=== PATIENT | female | born 1985 | race Asian ===

== ENCOUNTER 2019-08-28 08:43 | Day surgery (SDC) | payer BC ==
[2019-08-27 12:50] LABS: BLOOD UREA NITROGEN,BUN 8 mg/dL (7.0-18.0); CARBON DIOXIDE,CO2 25.4 mmol/L (21.0-32.0); CHLORIDE,CL 100 mmol/L (98-107); GLUCOSE RANDOM 91 mg/dL (74-106); POTASSIUM,K 4.1 mmol/L (3.5-5.1); SODIUM,NA 135 mmol/L (136-145)
[~2019-08-28 08:43] MED LIST: Sodium Chloride 0.9% 10 ML SDV IV PRN; Sodium Chloride 0.9% 10 ML Syringe FLUSH PRN; Sodium Chloride 0.9% 2.5 ML Syringe FLUSH PRN
[2019-08-28] MEDS ORDERED: Doxycycline 100 MG in Sodium Chloride 0.9% 100 ML IV ONE ×2 (09:00→10:15)
--- NOTE | 2019-08-28 09:09 | PCM.PREANE ---
Preanesthetic Assessment - Anesthesia/Transfusion/Family Hx Anesthesia History: No Prior Anesthesia Family History of Anesthesia Reaction: No Transfusion History: No Prior Transfusion(s) Intubation History: Unknown - Review of Systems General: No Symptoms Pulmonary: No Symptoms Cardiovascular: No Symptoms Gastrointestinal: No Symptoms Neurological: No Symptoms Other: Reports: None - Physical Assessment Height: 5 ft 4 in Weight: 56.245 kg ASA Class: 2 Mental Status: Alert & Oriented x3 Airway Class: Mallampati = 1 Dentition: Reports: Normal Dentition, Gleason(s) (x2 upper front) Thyro-Mental Finger Breadths: 3 Mouth Opening Finger Breadths: 2 ROM/Head Extension: Full Lungs: Clear to Auscultation Cardiovascular: Regular Rate, Regular Rhythm - Lab Values: Laboratory Last Values WBC 7.18 K/uL (4.0-11.0) 08/27/19 11:50 RBC 4.26 M/uL (4.30-5.90) L 08/27/19 11:50 Hgb 12.7 g/dL (12.0-16.0) 08/27/19 11:50 Hct 38.4 % (36.0-46.0) 08/27/19 11:50 MCV 90.1 fL (80.0-98.0) 08/27/19 11:50 MCH 29.8 pg (27.0-32.0) 08/27/19 11:50 MCHC 33.1 g/dL (31.0-37.0) 08/27/19 11:50 RDW Std Deviation 41.9 fl (28.0-62.0) 08/27/19 11:50 RDW Coeff of Maximo 13 % (11.0-15.0) 08/27/19 11:50 Plt Count 267 K/uL (150-400) 08/27/19 11:50 MPV 10.10 fL (7.40-12.00) 08/27/19 11:50 Nucleated RBC % 0.0 /100WBC 08/27/19 11:50 Nucleated RBCs # 0 K/uL 08/27/19 11:50 Sodium 135 mmol/L (136-145) L 08/27/19 11:50 Potassium 4.1 mmol/L (3.5-5.1) 08/27/19 11:50 Chloride 100 mmol/L (98-107) 08/27/19 11:50 Carbon Dioxide 25.4 mmol/L (21.0-32.0) 08/27/19 11:50 BUN 8 mg/dL (7.0-18.0) 08/27/19 11:50 Creatinine 0.5 mg/dL (0.6-1.0) L 08/27/19 11:50 Est Cr Clr Drug Dosing 136.90 mL/min 08/27/19 11:50 Estimated GFR (MDRD) > 60.0 ml/min 08/27/19 11:50 Glucose 91 mg/dL (74-106) 08/27/19 11:50 Calcium 9.5 mg/dL (8.5-10.1) 08/27/19 11:50 Total Bilirubin 0.4 mg/dL (0.2-1.0) 08/27/19 11:50 AST 14 IU/L (15-37) L 08/27/19 11:50 ALT 19 IU/L (14-63) 08/27/19 11:50 Alkaline Phosphatase 36 U/L (46-116) L 08/27/19 11:50 Total Protein 8.2 g/dL (6.4-8.2) 08/27/19 11:50 Albumin 4.2 g/dL (3.4-5.0) 08/27/19 11:50 Globulin 4.0 g/dL (2.6-4.0) 08/27/19 11:50 Albumin/Globulin Ratio 1.0 (0.9-1.6) 08/27/19 11:50 Free T4 0.99 ng/dL (0.76-1.46) 08/27/19 11:50 TSH 3rd Generation 1.10 uIU/mL (0.36-3.74) 08/27/19 11:50 HCG, Quant 786445.0 mIU/mL 08/27/19 11:50 Blood Type O NEGATIVE 08/27/19 11:50 Antibody Screen NEGATIVE 08/27/19 11:50 Screen Cancelled 08/27/19 11:50 RhIG Candidate? Cancelled 08/27/19 11:50 Rhogam Indicated YES, BABY RH UNKNOWN H 08/27/19 11:50 Crossmatch See Detail 08/27/19 11:50 - Allergies Allergies/Adverse Reactions: Allergies Allergy/AdvReac Type Severity Reaction Status Date / Time No Known Allergies Allergy Verified 08/27/19 09:10 - Blood Blood Available: No - Anesthesia Plan Pre-Op Medication Ordered: None - Acknowledgements Anesthesia Type Planned: General Anesthesia Pt an Appropriate Candidate for the Planned Anesthesia: Yes Alternatives and Risks of Anesthesia Discussed w Pt/Guardian: Yes Pt/Guardian Understands and Agrees with Anesthesia Plan: Yes PreAnesthesia Questionnaire - Past Health History Medical/Surgical History: Denies Medical/Surgical History HEENT History: Reports: None Cardiovascular History: Reports: Other (See Below) Other Cardiovascular History: palpatations, hx occasional PVC's Respiratory History: Reports: None Gastrointestinal History: Reports: Cholelithiasis (single stone) Genitourinary History: Reports: None 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: , Other (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) ( ovarian cyst) Musculoskeletal History: Reports: None Neurological History: Reports: None Psychiatric History: Reports: None Endocrine/Metabolic History: Reports: None Hematologic History: Reports: None Immunologic History: Reports: Other (See Below) Other Immunologic History: "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" "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" Oncologic (Cancer) History: Reports: None Dermatologic History: Reports: None - Past Surgical History Head Surgeries/Procedures: Reports: None HEENT Surgical History: Reports: None Cardiovascular Surgical History: Reports: None Respiratory Surgical History: Reports: None GI Surgical History: Reports: None Female Surgical History: Reports: Breast Biopsy Other Female Surgeries/Procedures: breast bx under local (fibroadenoma) Endocrine Surgical History: Reports: None Neurological Surgical History: Reports: None Musculoskeletal Surgical History: Reports: None Oncologic Surgical History: Reports: None Dermatological Surgical History: Reports: None - SUBSTANCE USE Smoking Status *Q: Never Smoker Recreational Drug Use History: No - HOME MEDS Home Medications: Home Meds Pnv No.95/Ferrous Fum/Folic AC [ Vitamin Tablet] 1 tab PO DAILY [History] Pyridoxine HCl (Vitamin B6) [Vitamin B-6] 1 tab PO DAILY 08/27/19 [History] - CURRENT (IN HOUSE) MEDS Current Meds: Current Medications Doxycycline Hyclate 100 mg/ (Sodium Chloride) 100 mls @ 100 mls/hr IV ONETIME ONE Stop: 08/28/19 09:59 Sodium Chloride (Saline Flush) 10 ml FLUSH ASDIRECTED PRN PRN Reason: Keep Vein Open Sodium Chloride (Saline Flush) 2.5 ml FLUSH ASDIRECTED PRN PRN Reason: Keep Vein Open Sodium Chloride (Normal Saline) 10 ml IV ASDIRECTED PRN PRN Reason: IV Use
[2019-08-28] MEDS ORDERED: Lidocaine 2% 5 ML SDV ONE (09:26)
[2019-08-28] MEDS ORDERED: Ondansetron 4 MG/2 ML SDV ONE (09:26)
[2019-08-28] MEDS ORDERED: Propofol 200 MG/20 ML SDV ONE (09:27)
[2019-08-28] MEDS ORDERED: fentaNYL 100 MCG/2 ML SDV ONE (09:27)
[2019-08-28] MEDS ORDERED: Midazolam 1 MG/ML 2 ML SDV ONE (09:27)
[2019-08-28] MEDS ORDERED: Lactated Ringers 1,000 ML IV SCH (09:30)
[2019-08-28] MEDS ORDERED: ePHEDrine 50 MG/ML SDV ONE (09:31)
--- NOTE | 2019-08-28 09:31 | CR ---
Chest: 2 views of the chest were obtained. Comparison: No previous chest imaging is available. Heart size and mediastinum are normal. Lungs are clear with no acute parenchymal change. Bony structures are unremarkable. Impression: 1. Nothing acute is seen on 2 view chest x-ray. Diagnostic code #1 This report was dictated in MDT
[2019-08-28] MEDS ORDERED: Carboprost Tromethamine 250 MCG/1 ML Amp ONE (10:34)
[2019-08-28] MEDS ORDERED: Methylergonovine 0.2 MG/1 ML Amp ONE (10:34)
[2019-08-28] MEDS ORDERED: Oxytocin 10 Units/1 ML SDV ONE ×2 (10:59→11:01)
[2019-08-28] MEDS ORDERED: Ketorolac 30 MG/ML SDV ONE (11:13)
[2019-08-28] MEDS ORDERED: Acetaminophen/HYDROcodone 325-5 MG Tab PO PRN (11:21)
--- NOTE | 2019-08-28 11:50 | PCM.POSTAN ---
POST ANESTHESIA ASSESSMENT - MENTAL STATUS Mental Status: Alert, Oriented - VITAL SIGNS Vital Signs: Last Vital Signs Temp 36.7 C 08/28/19 11:14 Pulse 88 08/28/19 11:40 Resp 10 L 08/28/19 11:40 BP 102/53 L 08/28/19 11:40 Pulse Ox 100 08/28/19 11:40 - RESPIRATORY Respiratory Status: Respiratory Rate WNL, Airway Patent, O2 Saturation Stable - CARDIOVASCULAR CV Status: Pulse Rate WNL, Blood Pressure Stable - GASTROINTESTINAL GI Status: No Symptoms - PAIN Pain Score: 2 - POST OP HYDRATION Hydration Status: Adequate & Stable - OBSERVATIONS Free Text/Narrative:: No anesthesia problems
[2019-08-28] MEDS ORDERED: Lidocaine 1% with EPINEPHrine 1:100,000 10 ML MDV ONE (12:32)
--- NOTE | 2019-08-28 13:36 | PCM48HPAN ---
Post Anesthesia Note - EVALUATION WITHIN 48HRS OF ANESTHETIC Vital Signs in Normal Range: Yes Patient Participated in Evaluation: Yes Respiratory Function Stable: Yes Airway Patent: Yes Cardiovascular Function Stable: Yes Hydration Status Stable: Yes Pain Control Satisfactory: Yes Nausea and Vomiting Control Satisfactory: Yes Mental Status Recovered: Yes Vital Signs: Last Vital Signs Temp 36.1 C 08/28/19 13:06 Pulse 82 08/28/19 13:06 Resp 16 08/28/19 13:06 BP 109/56 L 08/28/19 13:06 Pulse Ox 100 08/28/19 13:06
--- NOTE | 2019-08-28 13:49 | US ---
note for further details.
[2019-08-28] MEDS ORDERED: Acetaminophen/HYDROcodone 325-5 MG Tab PO ONE (15:06)
--- NOTE | 2019-08-28 17:44 | OR ---
SURGEON: Jason Thakkar MD DATE OF PROCEDURE: 08/28/2019 INDICATION FOR PROCEDURE: A 34-year-old, , at 9 weeks by last menstrual period diagnosed with nonviable presenting for surgical management. She had an ultrasound with pole measuring 6 weeks 0 days and no heart rate. Repeat ultrasound after 10 days confirmed no growth. There was also concern for molar because her HCG levels are significantly elevated and increasing, [phone] today, with cystic areas around the gestational sac. PREOPERATIVE DIAGNOSES: 1. Missed . 2. Suspected partial molar . POSTOPERATIVE DIAGNOSES: 1. Missed . 2. Suspected partial molar . PROCEDURE PERFORMED: Suction dilation and curettage under ultrasound guidance. ANESTHESIA: General anesthesia. ANESTHESIOLOGIST: Dr. Letty Medrano. FINDINGS: Uterus approximately 8-week size, anteverted and mobile. No adnexal masses. Uterine cavity evacuated and confirmed to have no remaining products of conception on ultrasound. No free fluid or other abnormalities of the pelvis on ultrasound. Products of conception sent to pathology for karyotype and cytogenetics. ESTIMATED BLOOD LOSS: 400 mL. DESCRIPTION OF PROCEDURE: The procedure was explained to the patient. Risks including bleeding; infection; DVTs; injury to surrounding organs including bladder, bowel, ureters discussed with the patient, she was agreeable. Questions answered and consent signed. She was brought to the operating room where she was placed in dorsal lithotomy position. Properly prepped and draped in sterile manner under general anesthesia. A bimanual exam revealed uterus to be 8-week size, anteverted, and mobile. The bladder was emptied with a straight catheter. A speculum was placed in the vagina. The cervix and vagina were both normal appearing. A paracervical block was performed with 1% lidocaine with epi and 7 mL was injected circumferentially around the cervix. A single-tooth tenaculum was used to grasp the anterior lip of the cervix. The endocervical canal was progressively dilated with Hegar dilator up to 9mm. A 9mm curved curette was connected to the suction under adequate pressure, placed in the cervix, and advanced to the fundus under ultrasound guidance. The suction curette was rotated slowly while extracting products of conception from the uterus. Two passes were made with the suction curettage which removed most tissue. A sharp curettage was carefully performed and two additional passes were made with the suction and curettage until there were no products visible in the endometrial cavity. The tenaculum was then removed. The tenaculum site was bleeding slightly. Silver nitrate was used to cauterize the site of bleeding. Hemostasis was confirmed. She was given Pitocin for uterine tone. Fundal massage was applied and the uterus was firm. Vaginal bleeding was light. She tolerated the procedure well and was awakened from anesthesia, sent to recovery room in stable condition. SOPHIA MIGUEL /[id number] MTDD
== END 2019-08-28 15:15 | disposition home or self-care (01) ==
LOC: MW.SDS 08:43
PROVIDERS: ATTEND Obstetrics & Gynecology
DX: O02.1 Missed abortion (principal)
CPT/HCPCS: 36415; 59820; 71046; 76998; 80053; 84439; 84443; 84702; 85027; 86850; 86900; 86901; 86920; 86921; 86922; 87635; 88233; A9270; J1885; J2001; J2210; J2250; J2405; J2590; J2704; J2792; J3010; J7120; 01965; U0002

== ENCOUNTER 2021-02-14 00:20 | Inpatient (IN) | payer BC ==
[2021-02-14] MEDS ORDERED: Sodium Chloride 0.9% 2.5 ML Syringe FLUSH PRN (00:48)
[2021-02-14] MEDS ORDERED: Methylergonovine 0.2 MG/1 ML Amp IM PRN (00:48)
[2021-02-14] MEDS ORDERED: Terbutaline 1 MG/ML SDV SUBCUT PRN (00:48)
[2021-02-14] MEDS ORDERED: Lidocaine 1% 50 ML MDV INJECT PRN (00:48)
[2021-02-14] MEDS ORDERED: Tranexamic Acid 1,000 MG in Sodium Chloride 0.9% 100 ML IV PRN (00:48)
[2021-02-14] MEDS ORDERED: Water For Irrigation,Sterile 1,000 ML Container IRR PRN (00:48)
[2021-02-14] MEDS ORDERED: Nalbuphine 10 MG/1 ML Vial IVPUSH PRN (00:48)
[2021-02-14] MEDS ORDERED: Sodium Chloride 0.9% 10 ML Syringe FLUSH PRN (00:48)
[2021-02-14] MEDS ORDERED: Ondansetron 4 MG/2 ML SDV IVPUSH PRN (00:48)
[2021-02-14] MEDS ORDERED: Sodium Chloride 0.9% 20 ML SDV IV PRN (00:48)
[2021-02-14] MEDS ORDERED: Misoprostol 200 MCG Tab PO PRN (00:48)
[2021-02-14] MEDS ORDERED: Misoprostol 25 MCG (1/4 of 100 MCG) Tab VAG PRN ×2 (00:48)
[2021-02-14] MEDS ORDERED: Butorphanol 1 MG/ML SDV IVPUSH PRN (00:48)
[2021-02-14] MEDS ORDERED: Carboprost Tromethamine 250 MCG/1 ML Amp IM PRN (00:48)
[2021-02-14] MEDS ORDERED: Oxytocin/0.9 % Sodium Chloride 30 UNIT/500 ML BAG IV SCH ×2 (01:00)
[2021-02-14] MEDS: Lactated Ringers 1,000 ML IV SCH ×3 (09:20→15:15)
[2021-02-14] MEDS ORDERED: Ropivacaine HCl/PF 200 ML ONE (12:34)
[2021-02-14] MEDS ORDERED: ePHEDrine 50 MG/ML SDV IVPUSH PRN ×2 (13:02)
--- NOTE | 2021-02-14 13:03 | PCM.PREANE ---
Preanesthetic Assessment - Anesthesia/Transfusion/Family Hx Anesthesia History: No Prior Anesthesia Transfusion History: No Prior Transfusion(s) Intubation History: Unknown - Review of Systems General: No Symptoms Pulmonary: No Symptoms Cardiovascular: No Symptoms Gastrointestinal: No Symptoms Neurological: No Symptoms Other: Reports: None - Physical Assessment NPO Status Date: 02/14/21 NPO Status Time: 00:00 Height: 5 ft 4 in Weight: 161 lb ASA Class: 2 Mental Status: Alert & Oriented x3 Airway Class: Mallampati = 1 Dentition: Reports: Normal Dentition ROM/Head Extension: Full Lungs: Clear to Auscultation, Normal Respiratory Effort Cardiovascular: Regular Rate, Regular Rhythm - Lab Values: Laboratory Last Values WBC 7.21 K/uL (4.0-11.0) 02/14/21 01:20 RBC 3.68 M/uL (4.30-5.90) L 02/14/21 01:20 Hgb 11.9 g/dL (12.0-16.0) L 02/14/21 01:20 Hct 34.6 % (36.0-46.0) L 02/14/21 01:20 MCV 94.0 fL (80.0-98.0) 02/14/21 01:20 MCH 32.3 pg (27.0-32.0) H 02/14/21 01:20 MCHC 34.4 g/dL (31.0-37.0) 02/14/21 01:20 RDW Std Deviation 50.6 fl (28.0-62.0) 02/14/21 01:20 RDW Coeff of Maximo 15 % (11.0-15.0) 02/14/21 01:20 Plt Count 247 K/uL (150-400) 02/14/21 01:20 MPV 10.40 fL (7.40-12.00) 02/14/21 01:20 Nucleated RBC % 0.0 /100WBC 02/14/21 01:20 Nucleated RBCs # 0 K/uL 02/14/21 01:20 Blood Type O NEGATIVE 02/14/21 01:20 Antibody Screen POSITIVE 02/14/21 01:20 Antibody Identification Anti-D 02/14/21 01:20 - Allergies Allergies/Adverse Reactions: Allergies Allergy/AdvReac Type Severity Reaction Status Date / Time No Known Allergies Allergy Verified 05/21/20 09:10 - Acknowledgements Anesthesia Type Planned: Epidural Pt an Appropriate Candidate for the Planned Anesthesia: Yes Alternatives and Risks of Anesthesia Discussed w Pt/Guardian: Yes Pt/Guardian Understands and Agrees with Anesthesia Plan: Yes PreAnesthesia Questionnaire - Past Health History Medical/Surgical History: Denies Medical/Surgical History HEENT History: Reports: None Cardiovascular History: Reports: Other (See Below) Other Cardiovascular History: palpatations, hx occasional PVC's Respiratory History: Reports: None Gastrointestinal History: Reports: Cholelithiasis Genitourinary History: Reports: None [employer] History: Reports: , Other (See Below) Musculoskeletal History: Reports: None Neurological History: Reports: None Psychiatric History: Reports: None Endocrine/Metabolic History: Reports: None Hematologic History: Reports: None Immunologic History: Reports: Other (See Below) Other Immunologic History: "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" "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" Oncologic (Cancer) History: Reports: None Dermatologic History: Reports: None - Past Surgical History Head Surgeries/Procedures: Reports: None HEENT Surgical History: Reports: None Cardiovascular Surgical History: Reports: None Respiratory Surgical History: Reports: None GI Surgical History: Reports: None Female Surgical History: Reports: Breast Biopsy Other Female Surgeries/Procedures: breast bx under local (fibroadenoma) Endocrine Surgical History: Reports: None Neurological Surgical History: Reports: None Musculoskeletal Surgical History: Reports: None Oncologic Surgical History: Reports: None Dermatological Surgical History: Reports: None - HOME MEDS Home Medications: Home Meds Pnv No.95/Ferrous Fum/Folic AC [ Vitamin Tablet] 1 tab PO DAILY 08/27/19 [History] Ibuprofen [Motrin] 600 mg PO Q6H PRN #24 tab 08/28/19 [Rx] - CURRENT (IN HOUSE) MEDS Current Meds: Current Medications Butorphanol Tartrate (Butorphanol 1 Mg/Ml Sdv) 1 mg IVPUSH Q1H PRN PRN Reason: Pain (severe 7-10) Carboprost Tromethamine (Carboprost Tromethamine 250 Mcg/1 Ml Amp) 250 mcg IM ASDIRECTED PRN PRN Reason: Post Hemorrhage Oxytocin/Sodium Chloride (Oxytocin 30 Unit In Ns 0.9% 500 Ml Premix) 30 unit in 500 mls @ 999 mls/hr IV TITRATE LEONOR Tranexamic Acid 1,000 mg/ (Sodium Chloride) 110 mls @ 660 mls/hr IV ONETIME PRN PRN Reason: Bleeding Oxytocin/Sodium Chloride (Oxytocin 30 Unit In Ns 0.9% 500 Ml Premix) 30 unit in 500 mls @ 2 mls/hr IV TITRATE LEONOR; Protocol Last Titration: 02/14/21 12:26 Dose: 0 munits/min, 0 mls/hr Documented by: Lactated Ringer's (Ringers, Lactated) 1,000 mls @ 150 mls/hr IV ASDIRECTED LEONOR Last Infusion: 02/14/21 09:50 Dose: 150 mls/hr Documented by: Lidocaine HCl (Lidocaine 1% 50 Ml Mdv) 50 ml INJECT ONETIME PRN PRN Reason: Laceration repair Methylergonovine Maleate (Methylergonovine 0.2 Mg/1 Ml Amp) 0.2 mg IM ASDIRECTED PRN PRN Reason: Post Hemorrhage Misoprostol (Misoprostol 200 Mcg Tab) 200 mcg PO ONETIME PRN PRN Reason: Post Hemorrhage Misoprostol (Misoprostol 25 Mcg (1/4 Of 100 Mcg) Tab) 25 mcg VAG ONETIME PRN PRN Reason: Cervical Ripening Last Admin: 02/14/21 01:50 Dose: 25 mcg Documented by: Misoprostol (Misoprostol 25 Mcg (1/4 Of 100 Mcg) Tab) 25 mcg VAG Q4H PRN PRN Reason: Cervical Ripening Last Admin: 02/14/21 06:07 Dose: 25 mcg Documented by: Nalbuphine HCl (Nalbuphine 10 Mg/1 Ml Vial) 10 mg IVPUSH Q1H PRN PRN Reason: Pain (severe 7-10) Ondansetron HCl (Ondansetron 4 Mg/2 Ml Sdv) 4 mg IVPUSH Q4H PRN PRN Reason: Nausea/Vomiting Sodium Chloride (Sodium Chloride 0.9% 10 Ml Syringe) 10 ml FLUSH ASDIRECTED PRN PRN Reason: Keep Vein Open Sodium Chloride (Sodium Chloride 0.9% 2.5 Ml Syringe) 2.5 ml FLUSH ASDIRECTED PRN PRN Reason: Keep Vein Open Sodium Chloride (Sodium Chloride 0.9% 20 Ml Sdv) 10 ml IV ASDIRECTED PRN PRN Reason: IV Use Sterile Water (Water For Irrigation,Sterile 1,000 Ml Container) 1,000 ml IRR ASDIRECTED PRN PRN Reason: delivery Terbutaline Sulfate (Terbutaline 1 Mg/Ml Sdv) 0.25 mg SUBCUT ASDIRECTED PRN PRN Reason: Tacysystole Discontinued Medications Ropivacaine (Naropin 0.2%) Confirm Administered Dose 200 mls @ as directed . ROU[facility] .[facility] ONE Stop: 02/14/21 12:35
--- NOTE | 2021-02-14 13:04 | PCM.POSTAN ---
POST ANESTHESIA ASSESSMENT - MENTAL STATUS Mental Status: Alert, Oriented - RESPIRATORY Respiratory Status: Respiratory Rate WNL, Airway Patent, O2 Saturation Stable - CARDIOVASCULAR CV Status: Pulse Rate WNL, Blood Pressure Stable - GASTROINTESTINAL GI Status: No Symptoms - POST OP HYDRATION Hydration Status: Adequate & Stable
--- NOTE | 2021-02-14 13:06 | PCM.SN.2 ---
- Pre-Procedure Checklist Attending Provider Aware: Yes Chart Reviewed: Yes Consent Signed: Yes Labs Reviewed: Yes VS/FHR Reviewed: Yes Patient Identification Confirmation Method: Reports: Chart Visual, ID Band Visual, Verbal Patient Pt an Appropriate Candidate for the Planned Anesthesia: Yes Alternatives and Risks of Anesthesia Discussed w Pt/Guardian: Yes - Procedure Procedure Start Date: 02/14/21 Procedure Start Time: 12:[address]: Reports: Blood Pressure, Heart Rate, SPO2 Functional IV: Yes Safety Measures: Reports: Patient Identified, Procedure Verified, Site Verified, Procedure Time Out Patient Position: Reports: Sitting Prep: Reports: Alcohol x3, Betadine x3 Local Anesthetic: Reports: Intradermal Wheal w Lidocaine 1% Regional Placement Level: Reports: L3-4 Needle: Reports: 17 g Touhy Approach: Reports: Midline Technique: Reports: SARATH Glass Syringe Parasthesia: Reports: None Fluid Obtained: Reports: None Test Dose Medication: Reports: Lidocaine 1.5% w Epinephrine 1:200,000 Test Dose Response: Reports: Negative Loading Dose Time: 12:25 Loading Dose Medication: 2% lido Loading Dose Patient Position: sitting Continuous Infusion Start Time: 12:35 Continuous Infusion Medication: 0.2% Naropin Continuous Infusion Rate: 15 Continuous Infusion PCS Bolus Option: 4 Continuous Infusion Lockout Dose (cc/hr): 20 Patient Position Post Placement: Reports: Supline/LELE Post-procedure Pain Level: 3 VS and FHR Monitored in Unit Post Placement: Yes Procedure End Date: 02/14/21 Procedure End Time: 13:15
[2021-02-14] MEDS ORDERED: Ropivacaine 0.2% 2MG/ML 200 ML Bag EPIDUR SCH (13:15)
[2021-02-14] MEDS ORDERED: Pantoprazole 40 MG in Sodium Chloride 0.9% 10 ML IV ONE (22:58)
[2021-02-15] MEDS ORDERED: Bisacodyl 10 MG Supp RECTAL PRN (02:59)
[2021-02-15] MEDS ORDERED: Lanolin 100% Cream 7 GM Tube TOP PRN (02:59)
[2021-02-15] MEDS ORDERED: Acetaminophen 500 MG Tab PO PRN (02:59)
[2021-02-15] MEDS ORDERED: Carboprost Tromethamine 250 MCG/1 ML Amp IM PRN (02:59)
[2021-02-15] MEDS ORDERED: Methylergonovine 0.2 MG/1 ML Amp IM PRN (02:59)
[2021-02-15] MEDS ORDERED: Benzocaine/Menthol 20%-0.5% Spray 78 GM Cannister TOP PRN (02:59)
[2021-02-15] MEDS ORDERED: Misoprostol 200 MCG Tab RECTAL PRN (02:59)
[2021-02-15] MEDS ORDERED: Tranexamic Acid 1,000 MG in Sodium Chloride 0.9% 100 ML IV PRN (02:59)
[2021-02-15] MEDS ORDERED: Ibuprofen 400 MG Tab PO PRN (02:59)
[2021-02-15] MEDS ORDERED: Witch Hazel Medicated Pads 40/Jar TOP PRN (02:59)
[2021-02-15] MEDS ORDERED: Ketorolac 30 MG/ML SDV IVPUSH PRN (03:04)
[2021-02-15] MEDS ORDERED: Morphine 2 MG/ML SYRINGE IVPUSH PRN (03:05)
--- NOTE | 2021-02-15 03:15 | PCM.DEL ---
L & D Note - General Info Date of Service: 02/15/21 - Delivery Note Labor: Induced by Oxytocin Cervical Ripening Method: Misoprostil Delivery Outcome: Livebirth Delivery Mode: Vacuum Extraction Presentation: Left Occiput Anterior (ROSA ELENA) Nuchal Cord: Present Anesthesia Type: Epidural, Local Anesthetic: Lidocaine (Xylocaine) 0.5% Plain Local Anesthetic Volume: Other (10cc) Amniotic Fluid Description: Meconium Stained Laceration: 3rd Degree Suture type: Vicryl Suture size: 2-0 Placenta: Intact, Spontaneous Cord: 3 Vessels Estimated Blood Loss: 350 Resuscitation Needed: Yes Provider: Jason Thakkar Second Stage Interventions: Reports: Pushing Ineffectively, Pushing, Left Side, Pushing, McRobert's Position, Pushing, Right Side, Pushing, Squatting, Pushing, Stirrups/Leg Supports - General Info Date of Service: 02/15/21 - Patient Data Weight - Most Recent: 161 lb Lab Results Last 24 Hours: Laboratory Results - last 24 hr 02/14/21 Range/Units 01:20 Blood Type O NEGATIVE Antibody Screen POSITIVE Antibody Identification Anti-D Med Orders - Current: Current Medications Acetaminophen (Acetaminophen 500 Mg Tab) 500 mg PO Q4H PRN PRN Reason: Pain (mild 1-3) Acetaminophen (Acetaminophen 500 Mg Tab) 1,000 mg PO Q4H PRN PRN Reason: Pain (mild 1-3) Hydrocodone Bitart/Acetaminophen (Acetaminophen/Hydrocodone 325-5 Mg Tab) 1 tab PO Q4H PRN PRN Reason: Pain (moderate 4-6) Benzocaine/Menthol (Benzocaine/Menthol 20%-0.5% [place] 78 Gm Cannister) 78 gm TOP ASDIRECTED PRN PRN Reason: Perineal Comfort Measure Bisacodyl (Bisacodyl 10 Mg Supp) 10 mg RECTAL ONETIME PRN PRN Reason: Constipation Carboprost Tromethamine (Carboprost Tromethamine 250 Mcg/1 Ml Amp) 250 mcg IM ASDIRECTED PRN PRN Reason: Excessive vaginal bleeding Docusate Sodium (Docusate Sodium 100 Mg Cap) 100 mg PO Q12H PRN PRN Reason: Constipation Emollient Ointment (Lanolin 100% Cream 7 Gm Tube) 0 gm TOP ASDIRECTED PRN PRN Reason: Sore Nipples Tranexamic Acid 1,000 mg/ (Sodium Chloride) 110 mls @ 660 mls/hr IV ONETIME PRN PRN Reason: Bleeding Ibuprofen (Ibuprofen 400 Mg Tab) 400 mg PO Q4H PRN PRN Reason: Pain (mild 1-3) Ibuprofen (Ibuprofen 800 Mg Tab) 800 mg PO Q6H PRN PRN Reason: Cramping Ketorolac Tromethamine (Ketorolac 30 Mg/Ml Sdv) 30 mg IVPUSH Q6H PRN PRN Reason: Pain (moderate 4-6) Stop: 02/16/21 03:04 Methylergonovine Maleate (Methylergonovine 0.2 Mg/1 Ml Amp) 0.2 mg IM ONETIME PRN PRN Reason: Excessive Vaginal Bleeding Miscellaneous Medication (Phenylephrine Hcl In 0.9% Nacl 1 Mg/10 Ml Syringe) 0.1 mg IVPUSH Q1M PRN PRN Reason: Hypotension Misoprostol (Misoprostol 200 Mcg Tab) 1,000 mcg RECTAL ONETIME PRN PRN Reason: excessive vaginal bleeding Morphine Sulfate (Morphine 2 Mg/Ml Syringe) 2 mg IVPUSH Q4H PRN PRN Reason: Pain (severe 7-10) Stop: 02/16/21 03:00 Ropivacaine (Ropivacaine 0.2% 2mg/Ml 200 Ml Bag) 400 mg EPIDUR ASDIRECTED LEONOR Sodium Chloride (Sodium Chloride 0.9% 10 Ml Syringe) 10 ml FLUSH ASDIRECTED PRN PRN Reason: Keep Vein Open Sodium Chloride (Sodium Chloride 0.9% 2.5 Ml Syringe) 2.5 ml FLUSH ASDIRECTED PRN PRN Reason: Keep Vein Open Sodium Chloride (Sodium Chloride 0.9% 20 Ml Sdv) 10 ml IV ASDIRECTED PRN PRN Reason: IV Use Witch Melissa (Witch Melissa Medicated Pads 40/Jar) 1 pad TOP ASDIRECTED PRN PRN Reason: comfort care Discontinued Medications Butorphanol Tartrate (Butorphanol 1 Mg/Ml Sdv) 1 mg IVPUSH Q1H PRN PRN Reason: Pain (severe 7-10) Carboprost Tromethamine (Carboprost Tromethamine 250 Mcg/1 Ml Amp) 250 mcg IM ASDIRECTED PRN PRN Reason: Post Hemorrhage Ephedrine Sulfate (Ephedrine 50 Mg/Ml Sdv) 10 mg IVPUSH Q5M PRN PRN Reason: Hypotension Ephedrine Sulfate (Ephedrine 50 Mg/Ml Sdv) 10 mg IVPUSH Q1M PRN PRN Reason: Hypotension Oxytocin/Sodium Chloride (Oxytocin 30 Unit In Ns 0.9% 500 Ml Premix) 30 unit in 500 mls @ 999 mls/hr IV TITRATE LEONOR Tranexamic Acid 1,000 mg/ (Sodium Chloride) 110 mls @ 660 mls/hr IV ONETIME PRN PRN Reason: Bleeding Oxytocin/Sodium Chloride (Oxytocin 30 Unit In Ns 0.9% 500 Ml Premix) 30 unit in 500 mls @ 2 mls/hr IV TITRATE LEONOR; Protocol Last Titration: 02/14/21 16:14 Dose: 0 munits/min, 0 mls/hr Documented by: Lactated Ringer's (Ringers, Lactated) 1,000 mls @ 150 mls/hr IV ASDIRECTED LEONOR Last Admin: 02/14/21 15:15 Dose: 150 mls/hr Documented by: Ropivacaine (Naropin 0.2%) Confirm Administered Dose 200 mls @ as directed .ROUTE .[facility]-MED ONE Stop: 02/14/21 12:35 Pantoprazole Sodium 40 mg/ (Sodium Chloride) 10 mls @ 300 mls/hr IV NOW ONE Stop: 02/14/21 22:59 Last Admin: 02/14/21 23:26 Dose: 300 mls/hr Documented by: Lidocaine HCl (Lidocaine 1% 50 Ml Mdv) 50 ml INJECT ONETIME PRN PRN Reason: Laceration repair Methylergonovine Maleate (Methylergonovine 0.2 Mg/1 Ml Amp) 0.2 mg IM ASDIRECTED PRN PRN Reason: Post Hemorrhage Misoprostol (Misoprostol 200 Mcg Tab) 200 mcg PO ONETIME PRN PRN Reason: Post Hemorrhage Misoprostol (Misoprostol 25 Mcg (1/4 Of 100 Mcg) Tab) 25 mcg VAG ONETIME PRN PRN Reason: Cervical Ripening Last Admin: 02/14/21 01:50 Dose: 25 mcg Documented by: Misoprostol (Misoprostol 25 Mcg (1/4 Of 100 Mcg) Tab) 25 mcg VAG Q4H PRN PRN Reason: Cervical Ripening Last Admin: 02/14/21 06:07 Dose: 25 mcg Documented by: Nalbuphine HCl (Nalbuphine 10 Mg/1 Ml Vial) 10 mg IVPUSH Q1H PRN PRN Reason: Pain (severe 7-10) Ondansetron HCl (Ondansetron 4 Mg/2 Ml Sdv) 4 mg IVPUSH Q4H PRN PRN Reason: Nausea/Vomiting Last Admin: 02/14/21 17:32 Dose: 4 mg Documented by: Sterile Water (Water For Irrigation,Sterile 1,000 Ml Container) 1,000 ml IRR ASDIRECTED PRN PRN Reason: delivery Terbutaline Sulfate (Terbutaline 1 Mg/Ml Sdv) 0.25 mg SUBCUT ASDIRECTED PRN PRN Reason: Tacysystole - Exam Urinary Catheter Total Time: 0Days 7Hours - Problem List Review Problem List Initiated/Reviewed/Updated: Yes - My Orders Last 24 Hours: My Active Orders 02/15/21 02:59 Patient Status [ADT] Routine May Shower [RC] ASDIRECTED Up ad Claudette [RC] ASDIRECTED Urinary Catheter Removal [RC] PER UNIT ROUTINE Vital Signs [RC] PER UNIT ROUTINE Acetaminophen [Tylenol Extra Strength] 1,000 mg PO Q4H PRN Acetaminophen [Tylenol Extra Strength] 500 mg PO Q4H PRN Acetaminophen/HYDROcodone [[place] 325-5 MG] 1 tab PO Q4H PRN Benzocaine/Menthol [Dermoplast Pain Relief 20%-0.5% [place]] 78 gm TOP ASDIRECTED PRN Carboprost Tromethamine [Hemabate DS] 250 mcg IM ASDIRECTED PRN Docusate Sodium [Colace] 100 mg PO Q12H PRN Ibuprofen [Motrin] 400 mg PO Q4H PRN Ibuprofen [Motrin] 800 mg PO Q6H PRN Lanolin [Lansinoh HPA] See Dose Instructions TOP ASDIRECTED PRN Methylergonovine [Methergine] 0.2 mg IM ONETIME PRN Tranexamic Acid [Cyklokapron] 1,000 mg Sodium Chloride 0.9% [Normal Saline] 100 ml IV ONETIME bisacodyL [Dulcolax] 10 mg RECTAL ONETIME PRN miSOPROStoL [Cytotec] 1,000 mcg RECTAL ONETIME PRN witch Melissa [Tucks] 1 pad TOP ASDIRECTED PRN Assess Lochia [WOMSER] Per Unit Routine Assess Uterine Involution [WOMSER] Per Unit Routine Breast Pump [WOMSER] Per Unit Routine Peripheral IV Discontinue [OM.PC] Routine 02/15/21 03:00 Ice Therapy [OM.PC] Per Unit Routine Perineal Care [OM.PC] Per Unit Routine Sitz Bath [OM.PC] Per Unit Routine 02/15/21 03:03 Cooling Warming Measures [RC] ASDIRECTED 02/15/21 03:04 Ketorolac [Toradol] 30 mg IVPUSH Q6H PRN 02/15/21 03:05 Morphine 2 mg IVPUSH Q4H PRN 02/15/21 03:07 RHOGAM, [RHIG WORKUP, ] [BBK] Routine 02/15/21 Breakfast Regular Diet [DIET] 02/16/21 05:11 HEMOGLOBIN/HEMATOCRIT,HH [HEME] Timed - Assessment Assessment:: 36yo PPD1 s/p vacuum assisted vaginal delivery due to maternal exhaustion. Complicated by third degree laceration. - Plan Plan:: Morphine, toradol and [place] PRN for pain. Stool softeners and perineal care. Blood type O neg, rhogam ordered CBC on PPD1
--- NOTE | 2021-02-15 04:41 | PCM48HPAN ---
Post Anesthesia Note - EVALUATION WITHIN 48HRS OF ANESTHETIC Vital Signs in Normal Range: Yes Patient Participated in Evaluation: Yes Respiratory Function Stable: Yes Airway Patent: Yes Cardiovascular Function Stable: Yes Hydration Status Stable: Yes Pain Control Satisfactory: Yes Nausea and Vomiting Control Satisfactory: Yes Mental Status Recovered: Yes
[2021-02-15] MEDS: Acetaminophen 500 MG Tab PO PRN ×2 (08:10→18:19)
[2021-02-15] MEDS: Acetaminophen/HYDROcodone 325-5 MG Tab PO PRN (14:29)
--- NOTE | 2021-02-15 15:04 | OR ---
SURGEON: Jason Thakkar MD DATE OF PROCEDURE: 02/15/2021 INDICATION FOR PROCEDURE: 36-year-old, G2, P0-0-1-0, at 39 weeks and 1 day, admitted for induction of labor. The patient's was complicated by advanced maternal age and IUI conception. She had a left ventricular echogenic focus on anatomy US with normal NIPT. She was evaluated by Perinatology and had normal anatomy. She is GBS negative. Her cervix was initially closed. She received two doses of Cytotec and progressed to 1 cm dilated, but the heart rate was category 2 with intermittent variables and periods of minimal variability. Decision was made to proceed with Pitocin instead. She was on 2 units of Pitocin but began to have prolonged decels to the 80s and 90s, lasting about 3 to 4 minutes. The baby heart rate recovered to baseline with repositioning. Pitocin was turned off. She did make cervical change to 3 cm dilated and had spontaneous rupture of membranes with clear fluid. Pitocin was restarted. She desired an epidural which she received with good pain control. The baby continued to have variable and late decels when she was on Pitocin. Therefore, this was intermittently stopped throughout her labor course to allow the tracing to recover. She began alejandra on her own and making cervical change. She progressed to fully dilated with the urge to push. PREOPERATIVE DIAGNOSES: 1. [place] intrauterine at 39 weeks and 1 day. 2. Active labor. POSTOPERATIVE DIAGNOSES: 1. [place] intrauterine at 39 weeks and 1 day. 2. Active labor. 3. Prolonged second stage of labor. 4. Maternal exhaustion. PROCEDURES PERFORMED: 1. Vacuum-assisted vaginal delivery. 2. Repair of third-degree laceration. ANESTHESIOLOGIST: Dr. Cedric Castellanos. ANESTHESIA: Epidural. FINDINGS: Viable male infant. scores of 4 and 9. Nuchal cord x1, and the cord was also wrapped around the baby's left arm. Meconium-stained fluid noted after delivery. weight of 7 pounds 15 ounces. ESTIMATED BLOOD LOSS: 350 mL. DESCRIPTION OF PROCEDURE: The patient pushed with contractions for 4 hours. She did make descent from +1 to +3 station. Multiple different positions of pushing were tried with the patient. She made progress slowly with good pushing efforts, but she was getting tired. Discussed vacuum-assisted vaginal delivery including the risk of hematoma, scalp lacerations, and retinal hemorrhage and the option of proceeding with a primary section. The patient desired to proceed with vacuum-assisted delivery. The [place]ona catheter was removed from the bladder. The Kiwi vacuum was placed at the flexion point. The head was in occiput anterior position. The vacuum was increased to the appropriate pressure. For the next 20 minutes, vacuum was applied and gentle traction was applied with maternal pushing effort. There was one pop-off of the vacuum. The head delivered in occiput anterior position over intact perineum. Anterior shoulder delivered easily followed by posterior shoulder and the remaining body. There was a tight nuchal cord that was reduced after delivery. The cord was wrapped around the baby's left arm which was reduced after delivery as well. Meconium-stained fluid was noted after the delivery. The baby was initially pink, but did not cry. He was brought over quickly to the warmer to awaiting nursery staff after clamping and cutting the cord. The baby did respond to resuscitation. The umbilical cord gases were obtained. The placenta was removed with gentle traction on the umbilical cord. Fundus was massaged and it was firm and below the umbilicus. The bleeding was light. Perineum was examined and she had a third-degree laceration with sulcal extension. The anal sphincter was carefully visualized. Rectal exam was performed with no mucosal defect. A 2-0 [address] was used to place multiple sutures to bring together the two sides of the anal sphincter. The perineal muscles were then reapproximated adjacent to it. The sulcal laceration and the remaining perineal laceration was repaired in the usual fashion, careful to reapproximate all the layers. Hemostasis was confirmed after the procedure. The patient tolerated the procedure well and was given care instructions. SOPHIA MIGUEL /[id number] ADRIAN
[2021-02-15] MEDS: Docusate Sodium 100 MG Cap PO PRN (20:34)
[2021-02-16] MEDS: Acetaminophen 500 MG Tab PO PRN (04:07)
[2021-02-16] MEDS: Ibuprofen 800 MG Tab PO PRN ×2 (10:43→19:35)
[2021-02-16] MEDS: Docusate Sodium 100 MG Cap PO PRN ×2 (10:43→20:08)
[2021-02-16] MEDS: Acetaminophen/HYDROcodone 325-5 MG Tab PO PRN ×2 (10:44→19:39)
--- NOTE | 2021-02-16 21:25 | PCM.PNPP ---
- General Info Date of Service: 02/16/21 Functional Status: Reports: Pain Controlled, Tolerating Diet, Ambulating, Urinating, Other (Bleeding moderate. Hgb 7.8 this AM. Patient felt dizzy and weak with ambulation. Feeling better after 1 unit of pRBCs.) - Review of Systems General: Reports: Weakness, Fatigue HEENT: Reports: No Symptoms Pulmonary: Reports: Shortness of Breath Cardiovascular: Reports: Lightheadedness Gastrointestinal: Reports: No Symptoms Genitourinary: Reports: No Symptoms Musculoskeletal: Reports: No Symptoms Skin: Reports: No Symptoms Neurological: Reports: No Symptoms Psychiatric: Reports: No Symptoms - Patient Data Vital Signs - Most Recent: Last Vital Signs Temp 36.4 C 02/16/21 19:00 Pulse 100 02/16/21 19:00 Resp 18 02/16/21 19:00 BP 116/74 02/16/21 19:00 Pulse Ox 98 02/16/21 19:00 Weight - Most Recent: 161 lb I&O - Last 24 Hours: Intake & Output 02/16/21 02/16/21 02/16/21 06:59 14:59 22:59 Intake Total 0 352 Balance 0 352 Lab Results - Last 24 Hours: Laboratory Results - last 24 hr 02/14/21 02/14/21 02/15/21 Range/Units 01:20 01:20 03:00 Hgb (12.0-16.0) g/dL Hct (36.0-46.0) % RPR Non-Reac (Non-Reac) Blood Type O NEGATIVE Antibody Screen POSITIVE POSITIVE Antibody Identification Anti-D Screen NEGATIVE (NEGATIVE) RhIG Candidate? YES Rhogam Indicated YES, BABY RH POS H Crossmatch See Detail 02/16/21 Range/Units 05:25 Hgb 7.8 L (12.0-16.0) g/dL Hct 23.3 L (36.0-46.0) % RPR (Non-Reac) Blood Type Antibody Screen Antibody Identification Screen (NEGATIVE) RhIG Candidate? Rhogam Indicated Crossmatch Med Orders - Current: Current Medications Acetaminophen (Acetaminophen 500 Mg Tab) 500 mg PO Q4H PRN PRN Reason: Pain (mild 1-3) Acetaminophen (Acetaminophen 500 Mg Tab) 1,000 mg PO Q4H PRN PRN Reason: Pain (mild 1-3) Last Admin: 02/16/21 04:07 Dose: 1,000 mg Documented by: Hydrocodone Bitart/Acetaminophen (Acetaminophen/Hydrocodone 325-5 Mg Tab) 1 tab PO Q4H PRN PRN Reason: Pain (moderate 4-6) Last Admin: 02/16/21 19:39 Dose: 1 tab Documented by: Benzocaine/Menthol (Benzocaine/Menthol 20%-0.5% [place] 78 Gm Cannister) 78 gm TOP ASDIRECTED PRN PRN Reason: Perineal Comfort Measure Last Admin: 02/15/21 08:10 Dose: 1 can Documented by: Bisacodyl (Bisacodyl 10 Mg Supp) 10 mg RECTAL ONETIME PRN PRN Reason: Constipation Carboprost Tromethamine (Carboprost Tromethamine 250 Mcg/1 Ml Amp) 250 mcg IM ASDIRECTED PRN PRN Reason: Excessive vaginal bleeding Docusate Sodium (Docusate Sodium 100 Mg Cap) 100 mg PO Q12H PRN PRN Reason: Constipation Last Admin: 02/16/21 20:08 Dose: 100 mg Documented by: Emollient Ointment (Lanolin 100% Cream 7 Gm Tube) 0 gm TOP ASDIRECTED PRN PRN Reason: Sore Nipples Last Admin: 02/15/21 08:10 Dose: 1 tube Documented by: Tranexamic Acid 1,000 mg/ (Sodium Chloride) 110 mls @ 660 mls/hr IV ONETIME PRN PRN Reason: Bleeding Ibuprofen (Ibuprofen 400 Mg Tab) 400 mg PO Q4H PRN PRN Reason: Pain (mild 1-3) Ibuprofen (Ibuprofen 800 Mg Tab) 800 mg PO Q6H PRN PRN Reason: Cramping Last Admin: 02/16/21 19:35 Dose: 800 mg Documented by: Methylergonovine Maleate (Methylergonovine 0.2 Mg/1 Ml Amp) 0.2 mg IM ONETIME PRN PRN Reason: Excessive Vaginal Bleeding Miscellaneous Medication (Phenylephrine Hcl In 0.9% Nacl 1 Mg/10 Ml Syringe) 0.1 mg IVPUSH Q1M PRN PRN Reason: Hypotension Misoprostol (Misoprostol 200 Mcg Tab) 1,000 mcg RECTAL ONETIME PRN PRN Reason: excessive vaginal bleeding Ropivacaine (Ropivacaine 0.2% 2mg/Ml 200 Ml Bag) 400 mg EPIDUR ASDIRECTED LEONOR Sodium Chloride (Sodium Chloride 0.9% 10 Ml Syringe) 10 ml FLUSH ASDIRECTED PRN PRN Reason: Keep Vein Open Sodium Chloride (Sodium Chloride 0.9% 2.5 Ml Syringe) 2.5 ml FLUSH ASDIRECTED PRN PRN Reason: Keep Vein Open Sodium Chloride (Sodium Chloride 0.9% 20 Ml Sdv) 10 ml IV ASDIRECTED PRN PRN Reason: IV Use Witch Melissa (Witch Melissa Medicated Pads 40/Jar) 1 pad TOP ASDIRECTED PRN PRN Reason: comfort care Last Admin: 02/15/21 08:10 Dose: 1 tub Documented by: Discontinued Medications Butorphanol Tartrate (Butorphanol 1 Mg/Ml Sdv) 1 mg IVPUSH Q1H PRN PRN Reason: Pain (severe 7-10) Carboprost Tromethamine (Carboprost Tromethamine 250 Mcg/1 Ml Amp) 250 mcg IM ASDIRECTED PRN PRN Reason: Post Hemorrhage Ephedrine Sulfate (Ephedrine 50 Mg/Ml Sdv) 10 mg IVPUSH Q5M PRN PRN Reason: Hypotension Ephedrine Sulfate (Ephedrine 50 Mg/Ml Sdv) 10 mg IVPUSH Q1M PRN PRN Reason: Hypotension Oxytocin/Sodium Chloride (Oxytocin 30 Unit In Ns 0.9% 500 Ml Premix) 30 unit in 500 mls @ 999 mls/hr IV TITRATE LEONOR Tranexamic Acid 1,000 mg/ (Sodium Chloride) 110 mls @ 660 mls/hr IV ONETIME PRN PRN Reason: Bleeding Oxytocin/Sodium Chloride (Oxytocin 30 Unit In Ns 0.9% 500 Ml Premix) 30 unit in 500 mls @ 2 mls/hr IV TITRATE LEONOR; Protocol Last Titration: 02/14/21 16:14 Dose: 0 munits/min, 0 mls/hr Documented by: Lactated Ringer's (Ringers, Lactated) 1,000 mls @ 150 mls/hr IV ASDIRECTED LEONOR Last Admin: 02/14/21 15:15 Dose: 150 mls/hr Documented by: Ropivacaine (Naropin 0.2%) Confirm Administered Dose 200 mls @ as directed .ROUTE .[facility]-MED ONE Stop: 02/14/21 12:35 Pantoprazole Sodium 40 mg/ (Sodium Chloride) 10 mls @ 300 mls/hr IV NOW ONE Stop: 02/14/21 22:59 Last Admin: 02/14/21 23:26 Dose: 300 mls/hr Documented by: Ketorolac Tromethamine (Ketorolac 30 Mg/Ml Sdv) 30 mg IVPUSH Q6H PRN PRN Reason: Pain (moderate 4-6) Stop: 02/16/21 03:04 Last Admin: 02/15/21 18:18 Dose: 30 mg Documented by: Lidocaine HCl (Lidocaine 1% 50 Ml Mdv) 50 ml INJECT ONETIME PRN PRN Reason: Laceration repair Last Admin: 02/15/21 02:10 Dose: 50 ml Documented by: Methylergonovine Maleate (Methylergonovine 0.2 Mg/1 Ml Amp) 0.2 mg IM ASDIRECTED PRN PRN Reason: Post Hemorrhage Misoprostol (Misoprostol 200 Mcg Tab) 200 mcg PO ONETIME PRN PRN Reason: Post Hemorrhage Misoprostol (Misoprostol 25 Mcg (1/4 Of 100 Mcg) Tab) 25 mcg VAG ONETIME PRN PRN Reason: Cervical Ripening Last Admin: 02/14/21 01:50 Dose: 25 mcg Documented by: Misoprostol (Misoprostol 25 Mcg (1/4 Of 100 Mcg) Tab) 25 mcg VAG Q4H PRN PRN Reason: Cervical Ripening Last Admin: 02/14/21 06:07 Dose: 25 mcg Documented by: Morphine Sulfate (Morphine 2 Mg/Ml Syringe) 2 mg IVPUSH Q4H PRN PRN Reason: Pain (severe 7-10) Stop: 02/16/21 03:00 Last Admin: 02/15/21 04:47 Dose: 2 mg Documented by: Nalbuphine HCl (Nalbuphine 10 Mg/1 Ml Vial) 10 mg IVPUSH Q1H PRN PRN Reason: Pain (severe 7-10) Ondansetron HCl (Ondansetron 4 Mg/2 Ml Sdv) 4 mg IVPUSH Q4H PRN PRN Reason: Nausea/Vomiting Last Admin: 02/14/21 17:32 Dose: 4 mg Documented by: Sterile Water (Water For Irrigation,Sterile 1,000 Ml Container) 1,000 ml IRR ASDIRECTED PRN PRN Reason: delivery Terbutaline Sulfate (Terbutaline 1 Mg/Ml Sdv) 0.25 mg SUBCUT ASDIRECTED PRN PRN Reason: Tacysystole - Infant Interaction Infant Disposition, : at Bedside Interaction: Holding Infant Infant Feeding: Attempted ; Nursed Fair/Poor Support Person: - Recovery Exam Fundal Tone: Firm Fundal Level: At Umbilicus Fundal Placement: Midline Lochia Amount: Small Lochia Color: Rubra/Red Perineum Description: Intact, Minimal Bruising/Swelling, Other (see below) Other Perinuem Description: 3rd degree laceration Episiotomy/Laceration: Approximated Bladder Status: Voiding Urinary Elimination: Voided Other Urinary Elimination, : Due to void - Exam General: Alert, Oriented, Cooperative, No Acute Distress HEENT: Pupils Equal, Pupils Reactive, EOMI Neck: Supple, Trachea Midline, No JVD Lungs: Normal Respiratory Effort GI/Abdominal Exam: Soft, Non-Tender, No Distention Extremities: Normal Inspection, Normal Range of Motion, Non-Tender, No Pedal Edema Skin: Warm, Dry, Intact Wound/Incisions: Healing Well Neurological: No New Focal Deficit Psy/Mental Status: Alert, Normal Affect, Normal Mood - Problem List Review Problem List Initiated/Reviewed/Updated: Yes - My Orders Last 24 Hours: My Active Orders 02/17/21 06:00 HEMOGLOBIN/HEMATOCRIT,HH [HEME] Routine - Assessment Assessment:: 36yo PPD1 s/p vacuum assisted vaginal delivery due to maternal exhaustion. Complicated by third degree laceration. - Plan Plan:: Vitals stable Acute anemia with blood loss, Hgb 7.8 today, symptomatic. Improving after 1u of PRBCs Motrin and [place] PRN for pain. Stool softeners and perineal care. Blood type O neg, rhogam given. Repeat CBC tomorrow AM. Plan for discharge home tomorrow, reviewed care instructions
[2021-02-17] MEDS: Ibuprofen 800 MG Tab PO PRN (05:10)
[2021-02-17] MEDS: Docusate Sodium 100 MG Cap PO PRN (08:45)
--- NOTE | 2021-02-17 08:48 | PCM.PNPP ---
- General Info Date of Service: 02/17/21 Functional Status: Reports: Pain Controlled, Tolerating Diet, Ambulating, Urinating, Other (Pain from laceration controlled with motrin and tylenol. Bleeding light. Hgb 9.5 this AM) - Review of Systems General: Reports: No Symptoms HEENT: Reports: No Symptoms Pulmonary: Reports: No Symptoms Cardiovascular: Reports: No Symptoms Gastrointestinal: Reports: No Symptoms Genitourinary: Reports: No Symptoms Musculoskeletal: Reports: No Symptoms Skin: Reports: No Symptoms Neurological: Reports: No Symptoms Psychiatric: Reports: No Symptoms - Patient Data Vital Signs - Most Recent: Last Vital Signs Temp 36.1 C 02/17/21 08:00 Pulse 80 02/17/21 08:00 Resp 18 02/17/21 08:00 BP 102/66 02/17/21 08:00 Pulse Ox 99 02/17/21 08:00 Weight - Most Recent: 161 lb I&O - Last 24 Hours: Intake & Output 02/16/21 02/17/21 02/17/21 22:59 06:59 14:59 Intake Total 352 Balance 352 Lab Results - Last 24 Hours: Laboratory Results - last 24 hr 02/14/21 02/14/21 02/15/21 Range/Units 01:20 01:20 03:00 WBC (4.0-11.0) K/uL RBC (4.30-5.90) M/uL Hgb (12.0-16.0) g/dL Hct (36.0-46.0) % MCV (80.0-98.0) fL MCH (27.0-32.0) pg MCHC (31.0-37.0) g/dL RDW Std Deviation (28.0-62.0) fl RDW Coeff of Maximo (11.0-15.0) % Plt Count (150-400) K/uL MPV (7.40-12.00) fL Nucleated RBC % /100WBC Nucleated RBCs # K/uL RPR Non-Reac (Non-Reac) Blood Type O NEGATIVE Antibody Screen POSITIVE POSITIVE Antibody Identification Anti-D Screen NEGATIVE (NEGATIVE) RhIG Candidate? YES Rhogam Indicated YES, BABY RH POS H Crossmatch See Detail 02/17/21 Range/Units 05:40 WBC 8.07 (4.0-11.0) K/uL RBC 2.97 L (4.30-5.90) M/uL Hgb 9.5 L (12.0-16.0) g/dL Hct 27.8 L (36.0-46.0) % MCV 93.6 (80.0-98.0) fL MCH 32.0 (27.0-32.0) pg MCHC 34.2 (31.0-37.0) g/dL RDW Std Deviation 53.6 (28.0-62.0) fl RDW Coeff of Maximo 16 H (11.0-15.0) % Plt Count 213 (150-400) K/uL MPV 9.80 (7.40-12.00) fL Nucleated RBC % 0.4 /100WBC Nucleated RBCs # 0 K/uL RPR (Non-Reac) Blood Type Antibody Screen Antibody Identification Screen (NEGATIVE) RhIG Candidate? Rhogam Indicated Crossmatch Med Orders - Current: Current Medications Acetaminophen (Acetaminophen 500 Mg Tab) 500 mg PO Q4H PRN PRN Reason: Pain (mild 1-3) Last Admin: 02/17/21 08:19 Dose: 500 mg Documented by: Acetaminophen (Acetaminophen 500 Mg Tab) 1,000 mg PO Q4H PRN PRN Reason: Pain (mild 1-3) Last Admin: 02/16/21 04:07 Dose: 1,000 mg Documented by: Hydrocodone Bitart/Acetaminophen (Acetaminophen/Hydrocodone 325-5 Mg Tab) 1 tab PO Q4H PRN PRN Reason: Pain (moderate 4-6) Last Admin: 02/16/21 19:39 Dose: 1 tab Documented by: Benzocaine/Menthol (Benzocaine/Menthol 20%-0.5% [place] 78 Gm Cannister) 78 gm TOP ASDIRECTED PRN PRN Reason: Perineal Comfort Measure Last Admin: 02/15/21 08:10 Dose: 1 can Documented by: Bisacodyl (Bisacodyl 10 Mg Supp) 10 mg RECTAL ONETIME PRN PRN Reason: Constipation Carboprost Tromethamine (Carboprost Tromethamine 250 Mcg/1 Ml Amp) 250 mcg IM ASDIRECTED PRN PRN Reason: Excessive vaginal bleeding Docusate Sodium (Docusate Sodium 100 Mg Cap) 100 mg PO Q12H PRN PRN Reason: Constipation Last Admin: 02/17/21 08:45 Dose: 100 mg Documented by: Emollient Ointment (Lanolin 100% Cream 7 Gm Tube) 0 gm TOP ASDIRECTED PRN PRN Reason: Sore Nipples Last Admin: 02/15/21 08:10 Dose: 1 tube Documented by: Tranexamic Acid 1,000 mg/ (Sodium Chloride) 110 mls @ 660 mls/hr IV ONETIME PRN PRN Reason: Bleeding Ibuprofen (Ibuprofen 400 Mg Tab) 400 mg PO Q4H PRN PRN Reason: Pain (mild 1-3) Ibuprofen (Ibuprofen 800 Mg Tab) 800 mg PO Q6H PRN PRN Reason: Cramping Last Admin: 02/17/21 05:10 Dose: 800 mg Documented by: Methylergonovine Maleate (Methylergonovine 0.2 Mg/1 Ml Amp) 0.2 mg IM ONETIME PRN PRN Reason: Excessive Vaginal Bleeding Miscellaneous Medication (Phenylephrine Hcl In 0.9% Nacl 1 Mg/10 Ml Syringe) 0.1 mg IVPUSH Q1M PRN PRN Reason: Hypotension Misoprostol (Misoprostol 200 Mcg Tab) 1,000 mcg RECTAL ONETIME PRN PRN Reason: excessive vaginal bleeding Ropivacaine (Ropivacaine 0.2% 2mg/Ml 200 Ml Bag) 400 mg EPIDUR ASDIRECTED LEONOR Sodium Chloride (Sodium Chloride 0.9% 10 Ml Syringe) 10 ml FLUSH ASDIRECTED PRN PRN Reason: Keep Vein Open Sodium Chloride (Sodium Chloride 0.9% 2.5 Ml Syringe) 2.5 ml FLUSH ASDIRECTED PRN PRN Reason: Keep Vein Open Sodium Chloride (Sodium Chloride 0.9% 20 Ml Sdv) 10 ml IV ASDIRECTED PRN PRN Reason: IV Use Witch Melissa (Witch Melissa Medicated Pads 40/Jar) 1 pad TOP ASDIRECTED PRN PRN Reason: comfort care Last Admin: 02/15/21 08:10 Dose: 1 tub Documented by: Discontinued Medications Butorphanol Tartrate (Butorphanol 1 Mg/Ml Sdv) 1 mg IVPUSH Q1H PRN PRN Reason: Pain (severe 7-10) Carboprost Tromethamine (Carboprost Tromethamine 250 Mcg/1 Ml Amp) 250 mcg IM ASDIRECTED PRN PRN Reason: Post Hemorrhage Ephedrine Sulfate (Ephedrine 50 Mg/Ml Sdv) 10 mg IVPUSH Q5M PRN PRN Reason: Hypotension Ephedrine Sulfate (Ephedrine 50 Mg/Ml Sdv) 10 mg IVPUSH Q1M PRN PRN Reason: Hypotension Oxytocin/Sodium Chloride (Oxytocin 30 Unit In Ns 0.9% 500 Ml Premix) 30 unit in 500 mls @ 999 mls/hr IV TITRATE LEONOR Tranexamic Acid 1,000 mg/ (Sodium Chloride) 110 mls @ 660 mls/hr IV ONETIME PRN PRN Reason: Bleeding Oxytocin/Sodium Chloride (Oxytocin 30 Unit In Ns 0.9% 500 Ml Premix) 30 unit in 500 mls @ 2 mls/hr IV TITRATE LEONOR; Protocol Last Titration: 02/14/21 16:14 Dose: 0 munits/min, 0 mls/hr Documented by: Lactated Ringer's (Ringers, Lactated) 1,000 mls @ 150 mls/hr IV ASDIRECTED LEONOR Last Admin: 02/14/21 15:15 Dose: 150 mls/hr Documented by: Ropivacaine (Naropin 0.2%) Confirm Administered Dose 200 mls @ as directed .ROUTE .STK-MED ONE Stop: 02/14/21 12:35 Pantoprazole Sodium 40 mg/ (Sodium Chloride) 10 mls @ 300 mls/hr IV NOW ONE Stop: 02/14/21 22:59 Last Admin: 02/14/21 23:26 Dose: 300 mls/hr Documented by: Ketorolac Tromethamine (Ketorolac 30 Mg/Ml Sdv) 30 mg IVPUSH Q6H PRN PRN Reason: Pain (moderate 4-6) Stop: 02/16/21 03:04 Last Admin: 02/15/21 18:18 Dose: 30 mg Documented by: Lidocaine HCl (Lidocaine 1% 50 Ml Mdv) 50 ml INJECT ONETIME PRN PRN Reason: Laceration repair Last Admin: 02/15/21 02:10 Dose: 50 ml Documented by: Methylergonovine Maleate (Methylergonovine 0.2 Mg/1 Ml Amp) 0.2 mg IM ASDIRECTED PRN PRN Reason: Post Hemorrhage Misoprostol (Misoprostol 200 Mcg Tab) 200 mcg PO ONETIME PRN PRN Reason: Post Hemorrhage Misoprostol (Misoprostol 25 Mcg (1/4 Of 100 Mcg) Tab) 25 mcg VAG ONETIME PRN PRN Reason: Cervical Ripening Last Admin: 02/14/21 01:50 Dose: 25 mcg Documented by: Misoprostol (Misoprostol 25 Mcg (1/4 Of 100 Mcg) Tab) 25 mcg VAG Q4H PRN PRN Reason: Cervical Ripening Last Admin: 02/14/21 06:07 Dose: 25 mcg Documented by: Morphine Sulfate (Morphine 2 Mg/Ml Syringe) 2 mg IVPUSH Q4H PRN PRN Reason: Pain (severe 7-10) Stop: 02/16/21 03:00 Last Admin: 02/15/21 04:47 Dose: 2 mg Documented by: Nalbuphine HCl (Nalbuphine 10 Mg/1 Ml Vial) 10 mg IVPUSH Q1H PRN PRN Reason: Pain (severe 7-10) Ondansetron HCl (Ondansetron 4 Mg/2 Ml Sdv) 4 mg IVPUSH Q4H PRN PRN Reason: Nausea/Vomiting Last Admin: 02/14/21 17:32 Dose: 4 mg Documented by: Sterile Water (Water For Irrigation,Sterile 1,000 Ml Container) 1,000 ml IRR ASDIRECTED PRN PRN Reason: delivery Terbutaline Sulfate (Terbutaline 1 Mg/Ml Sdv) 0.25 mg SUBCUT ASDIRECTED PRN PRN Reason: Tacysystole - Interaction Disposition, : [place] at Bedside Infant Interaction: Holding Infant Infant Feeding: Attempted ; Nursed Fair/Poor Support Person: - Recovery Exam Fundal Tone: Firms with Massage Fundal Level: At Umbilicus Fundal Placement: Midline Lochia Amount: Scant, Small Lochia Color: Rubra/Red Perineum Description: Edematous Other Perinuem Description: 3rd degree laceration Episiotomy/Laceration: Approximated Bladder Status: Nonpalpable, Voiding Urinary Elimination: Voided Other Urinary Elimination, : Due to void - Exam General: Alert, Oriented, Cooperative, No Acute Distress HEENT: Pupils Equal, Pupils Reactive Neck: Supple, Trachea Midline, No JVD Lungs: Normal Respiratory Effort GI/Abdominal Exam: Soft, Non-Tender, No Distention Extremities: Normal Inspection, Normal Range of Motion, Non-Tender, No Pedal Edema Skin: Warm, Dry, Intact Wound/Incisions: Healing Well Neurological: No New Focal Deficit Psy/Mental Status: Alert, Normal Affect, Normal Mood - Problem List Review Problem List Initiated/Reviewed/Updated: Yes - Assessment Assessment:: 36yo PPD2 s/p vacuum assisted vaginal delivery. - Plan Plan:: Vitals stable Acute anemia with blood loss, Hgb is 9.5 today after 1u of PRBCs. Symptoms resolved. Will start iron supplements. Motrin tylenol PRN for pain. Stool softeners and perineal care. Blood type O neg, rhogam given. Plan for discharge home today, incision check in 2 weeks, reviewed care instructions
== END 2021-02-17 13:42 | disposition home or self-care (01) | DRG 542 ==
LOC: MW.OBCHECK 00:20 → MW.OB 00:20 → MW.OBCHECK 00:48 → MW.OB 00:48 → OBSVTOIN 02-15 01:35 → MW.OB 02-15 11:12
PROVIDERS: ADMIT Obstetrics & Gynecology; ATTEND Obstetrics & Gynecology
PROC: 10D07Z6 Extraction of Products of Conception, Vacuum, Via Natural or Artificial Opening (ICD-10-PCS; principal; 2021-02-15)
PROC: 0DQR0ZZ Repair Anal Sphincter, Open Approach (ICD-10-PCS; 2021-02-15)
PROC: 3E033VJ Introduction of Other Hormone into Peripheral Vein, Percutaneous Approach (ICD-10-PCS; 2021-02-15)
PROC: 3E0R3BZ Introduction of Anesthetic Agent into Spinal Canal, Percutaneous Approach (ICD-10-PCS; 2021-02-15)
PROC: 00HU33Z Insertion of Infusion Device into Spinal Canal, Percutaneous Approach (ICD-10-PCS; 2021-02-15)
DX: O77.0 Labor and delivery complicated by meconium in amniotic fluid (principal); Z3A.39 39 weeks gestation of pregnancy; Z37.0 Single live birth; O76 Abnormality in fetal heart rate and rhythm complicating labor and delivery; O70.20 Third degree perineal laceration during delivery, unspecified; O69.1XX0 Labor and delivery complicated by cord around neck, with compression, not applicable or unspecified
CPT/HCPCS: 01967; 36415; 36430; 51702; 59025; 59409; 85014; 85018; 85027; 85460; 86592; 86850; 86870; 86900; 86901; 86920; 86921; 86922; A9270-GY; C9113; J1885; J2001; J2270; J2405; J2590; J2790; J2795; J7120; P9016

== ENCOUNTER 2021-02-21 01:22 | Observation (INO) | payer BC ==
[2021-02-21] MEDS ORDERED: Sodium Chloride 0.9% 2.5 ML Syringe FLUSH PRN (01:46)
[2021-02-21] MEDS ORDERED: Sodium Chloride 0.9% 10 ML Syringe FLUSH PRN (01:46)
--- NOTE | 2021-02-21 01:54 | EDM.PDOC ---
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 She is status post spontaneous vaginal delivery 5 days ago, complicated by grade 3 vaginal tear and symptomatic anemia needing 1 unit PRBC transfusion. She admits to nausea and bilateral nontender pitting edema. She denies fever, chills, vomiting, diarrhea, abdominal pain. She was prescribed iron supplements which she has not been taking due to fears for constipation. She was discharged with hemoglobin = 9.5 on 02/17, after transfusing 1 unit PRBC from hemoglobin of 7.8 the day before. ROS: A 10-point review of systems, other than pertinent positives and negatives as stated per HPI, is otherwise negative Past medical history: No additional pertinent history Past Surgical history: No additional pertinent history Social history: No additional pertinent history Family history: No additional pertinent history PHYSICAL EXAM General: AOx4, GCS = 15, No distress Skin: pale HEENT: dry mucous membrane Neck: supple, no meningismus, no Kernig or Brudzinski Cardiac: S1S2 bradycardia, bilateral LE pitting edema, negative Homans' sign. Respiratory: CTAB, trace bibasilar Rales Abdomen: Soft, nontender, no rebound or guarding, nondistended, no pulsatile mass. Back: nontender Musculoskeletal: NVI distally, no deformity Neuro: No focal deficits vaginal Pain Score (Numeric/FACES): 2 - Related Data Allergies Allergy/AdvReac Type Severity Reaction Status Date / Time No Known Allergies Allergy Verified 02/21/21 01:49 Home Meds: Home Meds Pnv No.95/Ferrous Fum/Folic AC [ Vitamin Tablet] 1 tab PO DAILY 05/21/20 [History] Ibuprofen [Motrin] 600 mg PO Q6H PRN #24 tab 08/28/19 [Rx] Docusate Sodium [Colace] 100 mg PO Q12H PRN cap 02/16/21 [Rx] Ferrous Sulfate [Ferosul] 325 mg PO BID #100 tablet 02/16/21 [Rx] Past Medical History - Past Health History Medical/Surgical History: Denies Medical/Surgical History HEENT History: Reports: None Cardiovascular History: Reports: Other (See Below) Other Cardiovascular History: palpatations, hx occasional PVC's Respiratory History: Reports: None Gastrointestinal History: Reports: Cholelithiasis Genitourinary History: Reports: None [employer] History: Reports: , Other (See Below) Musculoskeletal History: Reports: None Neurological History: Reports: None Psychiatric History: Reports: None Endocrine/Metabolic History: Reports: None Hematologic History: Reports: None Immunologic History: Reports: Other (See Below) Other Immunologic History: "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" "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" Oncologic (Cancer) History: Reports: None Dermatologic History: Reports: None - Past Surgical History Head Surgeries/Procedures: Reports: None HEENT Surgical History: Reports: None Cardiovascular Surgical History: Reports: None Respiratory Surgical History: Reports: None GI Surgical History: Reports: None Female Surgical History: Reports: Breast Biopsy Other Female Surgeries/Procedures: breast bx under local (fibroadenoma) Endocrine Surgical History: Reports: None Neurological Surgical History: Reports: None Musculoskeletal Surgical History: Reports: None Oncologic Surgical History: Reports: None Dermatological Surgical History: Reports: None Social & Family History - Family History Family Medical History: No Pertinent Family History Cardiac: Reports: CAD, Hypertension : Reports: Renal Calculus OBGYN: Reports: Endocrine/Metabolic: Reports: Diabetes, type II ED ROS GENERAL - Review of Systems Review Of Systems: See Below (see dictation) ED EXAM, GENERAL - Physical Exam Exam: See Below (see dictation) #1 Interpretation EKG Interpretation Comments: Heart rate = 50 bpm, sinus bradycardia, QTC = 373ms, normal QRS interval, no STEMI. EKG and rhythm strip interpreted by me at 0139 Course - Vital Signs Last Recorded V/S: Last Vital Signs Temp 97.8 F 02/21/21 01:50 Pulse 53 L 02/21/21 02:57 Resp 18 02/21/21 02:57 BP 152/71 H 02/21/21 02:57 Pulse Ox 100 02/21/21 02:57 - Orders/Labs/Meds Orders: Active Orders 24 hr Category Date Time Status Cardiac Monitoring [RC] . DIRECTED Care 02/21/21 01:46 Active Pulse Oximetry [RC] ASDIRECTED Care 02/21/21 01:46 Active TYPE AND SCREEN [BBK] Stat Lab 02/21/21 02:05 Received UA RFX GLENROY AND CULT IF INDIC [URIN] Stat Lab 02/21/21 03:30 Ordered Sodium Chloride 0.9% [Saline Flush] Med 02/21/21 01:46 Active 10 ml FLUSH ASDIRECTED PRN Sodium Chloride 0.9% [Saline Flush] Med 02/21/21 01:46 Active 2.5 ml FLUSH ASDIRECTED PRN Saline Lock Insert [OM.PC] Stat Oth 02/21/21 01:46 Ordered Medication Orders Sodium Chloride (Sodium Chloride 0.9% 10 Ml Syringe) 10 ml FLUSH ASDIRECTED PRN PRN Reason: Keep Vein Open Last Admin: 02/21/21 02:18 Dose: 10 ml Documented by: CATALINO Sodium Chloride (Sodium Chloride 0.9% 2.5 Ml Syringe) 2.5 ml FLUSH ASDIRECTED PRN PRN Reason: Keep Vein Open Last Admin: 02/21/21 02:17 Dose: 2.5 ml Documented by: CATALINO Labs: Laboratory Tests 02/21/21 02/21/21 02/21/21 Range/Units 01:38 01:38 01:38 WBC 6.29 (4.0-11.0) K/uL RBC 3.13 L (4.30-5.90) M/uL Hgb 9.9 L (12.0-16.0) g/dL Hct 29.7 L (36.0-46.0) % MCV 94.9 (80.0-98.0) fL MCH 31.6 (27.0-32.0) pg MCHC 33.3 (31.0-37.0) g/dL RDW Std Deviation 49.0 (28.0-62.0) fl RDW Coeff of Maximo 14 (11.0-15.0) % Plt Count 304 (150-400) K/uL MPV 9.30 (7.40-12.00) fL Add Manual Diff YES Neutrophils % (Manual) 67 (48.0-80.0) % Lymphocytes % (Manual) 24 (16.0-40.0) % Monocytes % (Manual) 8 (0.0-15.0) % Eosinophils % (Manual) 1 (0.0-7.0) % Nucleated RBC % 0.5 /100WBC Absolute Seg Neuts 4.2 (1.4-5.7) Lymphocytes # (Manual) 1.5 (0.6-2.4) Monocytes # (Manual) 0.5 (0.0-0.8) Eosinophils # (Manual) 0.1 (0.0-0.7) Nucleated RBCs # 0 K/uL INR APTT (18.6-31.3) SEC Sodium 140 (136-145) mmol/L Potassium 4.1 (3.5-5.1) mmol/L Chloride 105 (98-107) mmol/L Carbon Dioxide 23.4 (21.0-32.0) mmol/L BUN 21 H (7.0-18.0) mg/dL Creatinine 0.9 (0.6-1.0) mg/dL Est Cr Clr Drug Dosing 71.48 mL/min Estimated GFR (MDRD) > 60.0 ml/min Glucose 107 H (74-106) mg/dL Lactic Acid (0.4-2.0) mmol/L Calcium 8.3 L (8.5-10.1) mg/dL Total Bilirubin 0.2 (0.2-1.0) mg/dL AST 23 (15-37) IU/L ALT 39 (14-63) IU/L Alkaline Phosphatase 108 (46-116) U/L Troponin I < 0.050 (0.000-0.056) ng/mL B-Natriuretic Peptide 203 H (<100) PG/ML Total Protein 6.5 (6.4-8.2) g/dL Albumin 2.4 L (3.4-5.0) g/dL Globulin 4.1 H (2.6-4.0) g/dL Albumin/Globulin Ratio 0.6 L (0.9-1.6) 02/21/21 02/21/21 Range/Units 01:38 02:05 WBC (4.0-11.0) K/uL RBC (4.30-5.90) M/uL Hgb (12.0-16.0) g/dL Hct (36.0-46.0) % MCV (80.0-98.0) fL MCH (27.0-32.0) pg MCHC (31.0-37.0) g/dL RDW Std Deviation (28.0-62.0) fl RDW Coeff of Maximo (11.0-15.0) % Plt Count (150-400) K/uL MPV (7.40-12.00) fL Add Manual Diff Neutrophils % (Manual) (48.0-80.0) % Lymphocytes % (Manual) (16.0-40.0) % Monocytes % (Manual) (0.0-15.0) % Eosinophils % (Manual) (0.0-7.0) % Nucleated RBC % /100WBC Absolute Seg Neuts (1.4-5.7) Lymphocytes # (Manual) (0.6-2.4) Monocytes # (Manual) (0.0-0.8) Eosinophils # (Manual) (0.0-0.7) Nucleated RBCs # K/uL INR 1.07 APTT 26.3 (18.6-31.3) SEC Sodium (136-145) mmol/L Potassium (3.5-5.1) mmol/L Chloride (98-107) mmol/L Carbon Dioxide (21.0-32.0) mmol/L BUN (7.0-18.0) mg/dL Creatinine (0.6-1.0) mg/dL Est Cr Clr Drug Dosing mL/min Estimated GFR (MDRD) ml/min Glucose (74-106) mg/dL Lactic Acid 0.7 (0.4-2.0) mmol/L Calcium (8.5-10.1) mg/dL Total Bilirubin (0.2-1.0) mg/dL AST (15-37) IU/L ALT (14-63) IU/L Alkaline Phosphatase (46-116) U/L Troponin I (0.000-0.056) ng/mL B-Natriuretic Peptide (<100) PG/ML Total Protein (6.4-8.2) g/dL Albumin (3.4-5.0) g/dL Globulin (2.6-4.0) g/dL Albumin/Globulin Ratio (0.9-1.6) Meds: Medications Generic Name Dose Route Start Last Admin Trade Name Freq PRN Reason Stop Dose Admin Sodium Chloride 10 ml 02/21/21 01:46 02/21/21 02:18 Sodium Chloride 0.9% 10 Ml Syringe FLUSH 10 ml ASDIRECTED PRN Administration Keep Vein Open Sodium Chloride 2.5 ml 02/21/21 01:46 02/21/21 02:17 Sodium Chloride 0.9% 2.5 Ml Syringe FLUSH 2.5 ml ASDIRECTED PRN Administration Keep Vein Open Discontinued Medications Generic Name Dose Route Start Last Admin Trade Name Freq PRN Reason Stop Dose Admin Iopamidol 75 ml 02/21/21 03:04 02/21/21 03:05 Iopamidol 755 Mg/Ml 500 Ml Multipack Bottle IVPUSH 02/21/21 03:05 75 ml ONETIME STA Administration - Re-Assessments/Exams Free Text/Narrative Re-Assessment/Exam: 02/21/21 03:[address] Park, who agrees to admit patient. The hospitalist's documentation supersedes all other documentation on this patient with regard to any conflicts or discrepancies from this point forward. Any emergency conditions have been treated to the ability of the ED prior to admission. Departure - Departure Time of Disposition: 03:45 Disposition: Refer to Observation Condition: Good Clinical Impression: cardiomyopathy, Symptomatic bradycardia - Discharge Information *PRESCRIPTION DRUG MONITORING PROGRAM REVIEWED*: Not Applicable *COPY OF PRESCRIPTION DRUG MONITORING REPORT IN PATIENT DARCI: Not Applicable Referrals: PCP,None [Primary Care Provider] - Forms: ED Department Discharge Sepsis Event Note (ED) - Focused Exam Vital Signs: Vital Signs Temp Pulse Resp BP Pulse Ox 02/21/21 02:57 53 L 18 152/71 H 100 02/21/21 01:50 97.8 F 49 L 18 131/70 99 - My Orders Last 24 Hours: My Active Orders 02/21/21 01:46 Cardiac Monitoring [RC] . DIRECTED Pulse Oximetry [RC] ASDIRECTED Sodium Chloride 0.9% [Saline Flush] 10 ml FLUSH ASDIRECTED PRN Sodium Chloride 0.9% [Saline Flush] 2.5 ml FLUSH ASDIRECTED PRN Saline Lock Insert [OM.PC] Stat 02/21/21 02:05 TYPE AND SCREEN [BBK] Stat 02/21/21 03:30 UA RFX GLENROY AND CULT IF INDIC [URIN] Stat - Assessment/Plan Last 24 Hours: My Active Orders 02/21/21 01:46 Cardiac Monitoring [RC] . DIRECTED Pulse Oximetry [RC] ASDIRECTED Sodium Chloride 0.9% [Saline Flush] 10 ml FLUSH ASDIRECTED PRN Sodium Chloride 0.9% [Saline Flush] 2.5 ml FLUSH ASDIRECTED PRN Saline Lock Insert [OM.PC] Stat 02/21/21 02:05 TYPE AND SCREEN [BBK] Stat 02/21/21 03:30 UA RFX GLENROY AND CULT IF INDIC [URIN] Stat
[2021-02-21 02:18] LABS: BLOOD UREA NITROGEN,BUN 21 mg/dL (7.0-18.0); CARBON DIOXIDE,CO2 23.4 mmol/L (21.0-32.0); CHLORIDE,CL 105 mmol/L (98-107); GLUCOSE RANDOM 107 mg/dL (74-106); POTASSIUM,K 4.1 mmol/L (3.5-5.1); SODIUM,NA 140 mmol/L (136-145)
--- NOTE | 2021-02-21 02:39 | CR ---
HISTORY: Dyspnea COMPARISON: 08/28/2019 FINDINGS: A portable erect AP view of the chest was obtained at 0155 hours. The lungs remain clear. No focal or diffuse infiltrates are present. The heart remains normal in size. The mediastinum is normal in appearance. The osseous structures are normal in appearance for the patient`s age. IMPRESSION: Normal portable chest single view. Dictated by Dimas Acuña MD @ 02/21/2021 2:37:18 AM (Electronically Signed)
[2021-02-21] MEDS ORDERED: Iopamidol 755 MG/ML 500 ML Multipack Bottle IVPUSH STA (03:04)
--- NOTE | 2021-02-21 03:28 | CT ---
INDICATION: Dyspnea TECHNIQUE: CT chest PE was acquired with 75 cc Isovue 370 intravenous contrast. COMPARISON: None. FINDINGS: Heart and vasculature: Contrast opacification of the pulmonary arterial tree is adequate. No sign of pulmonary embolism. Thoracic aorta is normal in caliber. No pericardial effusion. Lungs and pleural: Trace bilateral pleural effusions. Minimal discoid atelectasis lung bases. Lymph nodes/mediastinum: No mediastinal, hilar, or axillary adenopathy. Chest wall: No masses. Upper abdomen: Normal. Bones: Unremarkable for age. IMPRESSION: 1. No evidence of pulmonary embolus. 2. Trace bilateral pleural effusions with minimal basilar discoid atelectasis. Please note that all CT scans at this facility use dose modulation, iterative reconstruction, and/or weight-based dosing when appropriate to reduce radiation dose to as low as reasonably achievable. Dictated by Roscoe Milner MD @ 02/21/2021 3:26:04 AM (Electronically Signed)
[2021-02-21] MEDS ORDERED: Furosemide 20 MG Tab PO ONE (04:30)
--- NOTE | 2021-02-21 04:38 | PCM.HP.2 ---
H&P History of Present Illness - General Date of Service: 02/21/21 Admit Problem/Dx: Admission Diagnosis/Problem Admission Diagnosis/Problem Dyspnea on exertion - History of Present Illness Initial Comments - Free Text/Narative: 36 yo female who is 5 days s/p vaginal delivery that was complicated by grade 3 vaginal tear needing 1 unit pRBCs. After her delivery she notice pedal edema and shortness of breath. She has since developed orthopnea and has difficulty sleeping due to her orthopnea. vaginal Pain Score (Numeric/FACES): 2 - Related Data Allergies/Adverse Reactions: Allergies Allergy/AdvReac Type Severity Reaction Status Date / Time No Known Allergies Allergy Verified 02/21/21 01:49 Home Medications: Home Meds Pnv No.95/Ferrous Fum/Folic AC [ Vitamin Tablet] 1 tab PO DAILY 08/27/19 [History] Ibuprofen [Motrin] 600 mg PO Q6H PRN #24 tab 08/28/19 [Rx] Docusate Sodium [Colace] 100 mg PO Q12H PRN cap 02/16/21 [Rx] Ferrous Sulfate [Ferosul] 325 mg PO BID #100 tablet 02/16/21 [Rx] Acetaminophen/oxyCODONE [Percocet 325-5 MG] 1 each PO Q6H PRN #12 tab 02/22/21 [Rx] Docusate Sodium [Colace] 100 mg PO Q12H PRN cap 02/22/21 [Rx] Past Medical History - Past Health History Medical/Surgical History: Denies Medical/Surgical History HEENT History: Reports: None Cardiovascular History: Reports: Other (See Below) Other Cardiovascular History: palpatations, hx occasional PVC's Respiratory History: Reports: None Gastrointestinal History: Reports: Cholelithiasis Genitourinary History: Reports: None 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 MANAGER History: Reports: , Other (See Below) Musculoskeletal History: Reports: None Neurological History: Reports: None Psychiatric History: Reports: None Endocrine/Metabolic History: Reports: None Hematologic History: Reports: None Immunologic History: Reports: Other (See Below) Other Immunologic History: "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" "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" Oncologic (Cancer) History: Reports: None Dermatologic History: Reports: None - Past Surgical History Head Surgeries/Procedures: Reports: None HEENT Surgical History: Reports: None Cardiovascular Surgical History: Reports: None Respiratory Surgical History: Reports: None GI Surgical History: Reports: None Female Surgical History: Reports: Breast Biopsy Other Female Surgeries/Procedures: breast bx under local (fibroadenoma) Endocrine Surgical History: Reports: None Neurological Surgical History: Reports: None Musculoskeletal Surgical History: Reports: None Oncologic Surgical History: Reports: None Dermatological Surgical History: Reports: None Social & Family History - Family History Family Medical History: No Pertinent Family History Cardiac: Reports: CAD, Hypertension : Reports: Renal Calculus OBGYN: Reports: Endocrine/Metabolic: Reports: Diabetes, type II - Tobacco Use Tobacco Use Status *Q: Never Tobacco User Second Hand Smoke Exposure: No - Caffeine Use Caffeine Use: Reports: Coffee - Recreational Drug Use Recreational Drug Use: No H&P Review of Systems - Review of Systems: Review Of Systems: Comprehensive ROS is negative, except as noted in HPI. Exam - Exam Exam: See Below - Vital Signs Vital Signs: Last Vital Signs Temp 36.6 C 02/21/21 01:50 Pulse 54 L 02/21/21 04:07 Resp 18 02/21/21 04:07 BP 146/64 H 02/21/21 04:07 Pulse Ox 98 02/21/21 04:07 Weight: 58.967 kg - Exam General: Alert, Oriented HEENT: Mucosa Moist & [place] Neck: Supple Lungs: Clear to Auscultation, Normal Respiratory Effort Cardiovascular: Regular Rate, Regular Rhythm GI/Abdominal Exam: Soft, Non-Tender Extremities: Non-Tender, No Pedal Edema Skin: Warm, Dry, Intact Neurological: No: Focal Deficit (1-2 mm pitting edema) - Patient Data Lab Results Last 24 hrs: Laboratory Results - last 24 hr 02/21/21 02/21/21 02/21/21 Range/Units 01:38 01:38 01:38 WBC 6.29 (4.0-11.0) K/uL RBC 3.13 L (4.30-5.90) M/uL Hgb 9.9 L (12.0-16.0) g/dL Hct 29.7 L (36.0-46.0) % MCV 94.9 (80.0-98.0) fL MCH 31.6 (27.0-32.0) pg MCHC 33.3 (31.0-37.0) g/dL RDW Std Deviation 49.0 (28.0-62.0) fl RDW Coeff of Maximo 14 (11.0-15.0) % Plt Count 304 (150-400) K/uL MPV 9.30 (7.40-12.00) fL Add Manual Diff YES Neutrophils % (Manual) 67 (48.0-80.0) % Lymphocytes % (Manual) 24 (16.0-40.0) % Monocytes % (Manual) 8 (0.0-15.0) % Eosinophils % (Manual) 1 (0.0-7.0) % Nucleated RBC % 0.5 /100WBC Absolute Seg Neuts 4.2 (1.4-5.7) Lymphocytes # (Manual) 1.5 (0.6-2.4) Monocytes # (Manual) 0.5 (0.0-0.8) Eosinophils # (Manual) 0.1 (0.0-0.7) Nucleated RBCs # 0 K/uL INR APTT (18.6-31.3) SEC Sodium 140 (136-145) mmol/L Potassium 4.1 (3.5-5.1) mmol/L Chloride 105 (98-107) mmol/L Carbon Dioxide 23.4 (21.0-32.0) mmol/L BUN 21 H (7.0-18.0) mg/dL Creatinine 0.9 (0.6-1.0) mg/dL Est Cr Clr Drug Dosing 71.48 mL/min Estimated GFR (MDRD) > 60.0 ml/min Glucose 107 H (74-106) mg/dL Lactic Acid (0.4-2.0) mmol/L Calcium 8.3 L (8.5-10.1) mg/dL Total Bilirubin 0.2 (0.2-1.0) mg/dL AST 23 (15-37) IU/L ALT 39 (14-63) IU/L Alkaline Phosphatase 108 (46-116) U/L Troponin I < 0.050 (0.000-0.056) ng/mL B-Natriuretic Peptide 203 H (<100) PG/ML Total Protein 6.5 (6.4-8.2) g/dL Albumin 2.4 L (3.4-5.0) g/dL Globulin 4.1 H (2.6-4.0) g/dL Albumin/Globulin Ratio 0.6 L (0.9-1.6) Urine Color Urine Appearance Urine pH (5.0-8.0) Ur Specific Loyal (1.001-1.035) Urine Protein (NEGATIVE) mg/dL Urine Glucose (UA) (NEGATIVE) mg/dL Urine Ketones (NEGATIVE) mg/dL Urine Occult Blood (NEGATIVE) Urine Nitrite (NEGATIVE) Urine Bilirubin (NEGATIVE) Urine Urobilinogen (<2.0) EU/dL Ur Leukocyte Esterase (NEGATIVE) Urine RBC (0-2/HPF) Urine WBC (0-5/HPF) Ur Epithelial Cells (NONE-FEW) Urine Bacteria (NEGATIVE) Blood Type Antibody Screen Antibody Identification 02/21/21 02/21/21 02/21/21 Range/Units 01:38 02:05 02:05 WBC (4.0-11.0) K/uL RBC (4.30-5.90) M/uL Hgb (12.0-16.0) g/dL Hct (36.0-46.0) % MCV (80.0-98.0) fL MCH (27.0-32.0) pg MCHC (31.0-37.0) g/dL RDW Std Deviation (28.0-62.0) fl RDW Coeff of Maximo (11.0-15.0) % Plt Count (150-400) K/uL MPV (7.40-12.00) fL Add Manual Diff Neutrophils % (Manual) (48.0-80.0) % Lymphocytes % (Manual) (16.0-40.0) % Monocytes % (Manual) (0.0-15.0) % Eosinophils % (Manual) (0.0-7.0) % Nucleated RBC % /100WBC Absolute Seg Neuts (1.4-5.7) Lymphocytes # (Manual) (0.6-2.4) Monocytes # (Manual) (0.0-0.8) Eosinophils # (Manual) (0.0-0.7) Nucleated RBCs # K/uL INR 1.07 APTT 26.3 (18.6-31.3) SEC Sodium (136-145) mmol/L Potassium (3.5-5.1) mmol/L Chloride (98-107) mmol/L Carbon Dioxide (21.0-32.0) mmol/L BUN (7.0-18.0) mg/dL Creatinine (0.6-1.0) mg/dL Est Cr Clr Drug Dosing mL/min Estimated GFR (MDRD) ml/min Glucose (74-106) mg/dL Lactic Acid 0.7 (0.4-2.0) mmol/L Calcium (8.5-10.1) mg/dL Total Bilirubin (0.2-1.0) mg/dL AST (15-37) IU/L ALT (14-63) IU/L Alkaline Phosphatase (46-116) U/L Troponin I (0.000-0.056) ng/mL B-Natriuretic Peptide (<100) PG/ML Total Protein (6.4-8.2) g/dL Albumin (3.4-5.0) g/dL Globulin (2.6-4.0) g/dL Albumin/Globulin Ratio (0.9-1.6) Urine Color Urine Appearance Urine pH (5.0-8.0) Ur Specific Loyal (1.001-1.035) Urine Protein (NEGATIVE) mg/dL Urine Glucose (UA) (NEGATIVE) mg/dL Urine Ketones (NEGATIVE) mg/dL Urine Occult Blood (NEGATIVE) Urine Nitrite (NEGATIVE) Urine Bilirubin (NEGATIVE) Urine Urobilinogen (<2.0) EU/dL Ur Leukocyte Esterase (NEGATIVE) Urine RBC (0-2/HPF) Urine WBC (0-5/HPF) Ur Epithelial Cells (NONE-FEW) Urine Bacteria (NEGATIVE) Blood Type O NEGATIVE Antibody Screen POSITIVE Antibody Identification Anti-D 02/21/21 Range/Units 03:56 WBC (4.0-11.0) K/uL RBC (4.30-5.90) M/uL Hgb (12.0-16.0) g/dL Hct (36.0-46.0) % MCV (80.0-98.0) fL MCH (27.0-32.0) pg MCHC (31.0-37.0) g/dL RDW Std Deviation (28.0-62.0) fl RDW Coeff of Maximo (11.0-15.0) % Plt Count (150-400) K/uL MPV (7.40-12.00) fL Add Manual Diff Neutrophils % (Manual) (48.0-80.0) % Lymphocytes % (Manual) (16.0-40.0) % Monocytes % (Manual) (0.0-15.0) % Eosinophils % (Manual) (0.0-7.0) % Nucleated RBC % /100WBC Absolute Seg Neuts (1.4-5.7) Lymphocytes # (Manual) (0.6-2.4) Monocytes # (Manual) (0.0-0.8) Eosinophils # (Manual) (0.0-0.7) Nucleated RBCs # K/uL INR APTT (18.6-31.3) SEC Sodium (136-145) mmol/L Potassium (3.5-5.1) mmol/L Chloride (98-107) mmol/L Carbon Dioxide (21.0-32.0) mmol/L BUN (7.0-18.0) mg/dL Creatinine (0.6-1.0) mg/dL Est Cr Clr Drug Dosing mL/min Estimated GFR (MDRD) ml/min Glucose (74-106) mg/dL Lactic Acid (0.4-2.0) mmol/L Calcium (8.5-10.1) mg/dL Total Bilirubin (0.2-1.0) mg/dL AST (15-37) IU/L ALT (14-63) IU/L Alkaline Phosphatase (46-116) U/L Troponin I (0.000-0.056) ng/mL B-Natriuretic Peptide (<100) PG/ML Total Protein (6.4-8.2) g/dL Albumin (3.4-5.0) g/dL Globulin (2.6-4.0) g/dL Albumin/Globulin Ratio (0.9-1.6) Urine Color YELLOW Urine Appearance SLT CLOUDY Urine pH 6.5 (5.0-8.0) Ur Specific Loyal 1.010 (1.001-1.035) Urine Protein NEGATIVE (NEGATIVE) mg/dL Urine Glucose (UA) NEGATIVE (NEGATIVE) mg/dL Urine Ketones NEGATIVE (NEGATIVE) mg/dL Urine Occult Blood LARGE H (NEGATIVE) Urine Nitrite NEGATIVE (NEGATIVE) Urine Bilirubin NEGATIVE (NEGATIVE) Urine Urobilinogen 0.2 (<2.0) EU/dL Ur Leukocyte Esterase SMALL H (NEGATIVE) Urine RBC 15-18 (0-2/HPF) Urine WBC 3-6 (0-5/HPF) Ur Epithelial Cells FEW (NONE-FEW) Urine Bacteria RARE (NEGATIVE) Blood Type Antibody Screen Antibody Identification Result Diagrams: 02/22/21 06:05 02/22/21 06:05 Sepsis Event Note - Evaluation Sepsis Screening Result: No Definite Risk - Focused Exam Vital Signs: Vital Signs Temp Pulse Resp BP Pulse Ox 02/21/21 04:07 54 L 18 146/64 H 98 02/21/21 02:57 53 L 18 152/71 H 100 02/21/21 01:50 36.6 C 49 L 18 131/70 99 Problem List Initiated/Reviewed/Updated: Yes Orders Last 24hrs: Active Orders 24 hr Category Date Time Status Patient Status [ADT] Routine ADT 02/21/21 03:44 Active Cardiac Monitoring [RC] . DIRECTED Care 02/21/21 01:46 Active Pulse Oximetry [RC] ASDIRECTED Care 02/21/21 01:46 Active Echo Comp wo Cont [US] Stat Exams 02/21/21 04:31 Ordered COVID-19/FLU A+B [MOLEC] Stat Lab 02/21/21 03:55 Received CULTURE URINE [MREF] Stat Lab 02/21/21 03:56 Received TROPONIN I [CHEM] Routine Lab 02/21/21 07:00 Ordered Sodium Chloride 0.9% [Saline Flush] Med 02/21/21 01:46 Active 10 ml FLUSH ASDIRECTED PRN Sodium Chloride 0.9% [Saline Flush] Med 02/21/21 01:46 Active 2.5 ml FLUSH ASDIRECTED PRN Saline Lock Insert [OM.PC] Stat Oth 02/21/21 01:46 Ordered Medication Orders Sodium Chloride (Sodium Chloride 0.9% 10 Ml Syringe) 10 ml FLUSH ASDIRECTED PRN PRN Reason: Keep Vein Open Last Admin: 02/21/21 02:18 Dose: 10 ml Documented by: CATALINO Sodium Chloride (Sodium Chloride 0.9% 2.5 Ml Syringe) 2.5 ml FLUSH ASDIRECTED PRN PRN Reason: Keep Vein Open Last Admin: 02/21/21 02:17 Dose: 2.5 ml Documented by: CATALINO Assessment/Plan Comment:: 36 yo female presenting with signs and symptoms concerning for cardiomyopathy vs preeclampsia. We will obtain an echocardiogram. We will diures with 20mg lasix. We will monitory on telemetry and closely monitor heart rate and blood pressure.
[2021-02-21 04:43] LABS: CORONAVIRUS COVID-19 NAA NEGATIVE (NEGATIVE); INFLUENZA A NAA NEGATIVE (NEGATIVE); INFLUENZA B NAA NEGATIVE (NEGATIVE)
[2021-02-21] MEDS ORDERED: hydrALAZINE 20 MG/ML SDV IVPUSH ONE (07:37)
[2021-02-21] MEDS ORDERED: Furosemide 40 MG/4 ML VIAL IVPUSH ONE (08:04)
[2021-02-21] MEDS: Acetaminophen 500 MG Tab PO PRN ×3 (09:24→22:41)
[2021-02-21] MEDS ORDERED: Calcium Gluconate 10% 1 GM/10 ML SDV IV PRN (12:37)
[2021-02-21] MEDS ORDERED: Sodium Chloride 0.9% 20 ML SDV IV PRN (12:37)
[2021-02-21] MEDS ORDERED: Magnesium Sulfate/Water 4 GM in Premix Bag 1 BAG IV ONE (12:37)
[2021-02-21] MEDS ORDERED: Benzocaine/Menthol 20%-0.5% Spray 78 GM Cannister TOP PRN (12:44)
[2021-02-21] MEDS ORDERED: Magnesium Sulfate/Water 20 GM/500 ML BAG IV SCH (12:45)
[2021-02-21] MEDS: Enoxaparin 40 MG/0.4 ML Syringe SUBCUT SCH (13:44)
[2021-02-21] MEDS: Docusate Sodium 100 MG Cap PO PRN (21:23)
[2021-02-21] MEDS: Magnesium Sulfate/Water 20 GM/500 ML BAG IV SCH (22:02)
--- NOTE | 2021-02-22 00:21 | PCM.CONS ---
H&P History of Present Illness - General Date of Service: 02/22/21 Admit Problem/Dx: Admission Diagnosis/Problem Admission Diagnosis/Problem Dyspnea on exertion - History of Present Illness Initial Comments - Free Text/Narative: 36yo PPD 5 s/p VAVD presenting with acute onset dyspnea. She had third degree laceration with anemia , was transfused 1u pRBC and Hgb was 9.5 prior to discharge. Patient reports increased LE swelling since prior to delivery, has not completely improved. This morning she noticed sudden SOB with ambulation and chest heaviness. Denies headaches, visual changes, RUQ pain. She was evaluated in the ED, BPs were elevated 140-150s/60-70s with bradycardia, HR 40-50s. Rhythm was sinus bradycardia. She had 2+ pitting edema bilaterally. BNP was elevated. CTA of the chest was negative for PE. Cardiac echo with normal EF. Other HPI/Comments: Patient seen 02/21 at 8.30AM, completed documentation after. vaginal Pain Score (Numeric/FACES): 7 - Related Data Allergies/Adverse Reactions: Allergies Allergy/AdvReac Type Severity Reaction Status Date / Time No Known Allergies Allergy Verified 02/21/21 01:49 Home Medications: Home Meds Pnv No.95/Ferrous Fum/Folic AC [ Vitamin Tablet] 1 tab PO DAILY 08/27/19 [History] Ibuprofen [Motrin] 600 mg PO Q6H PRN #24 tab 08/28/19 [Rx] Docusate Sodium [Colace] 100 mg PO Q12H PRN cap 02/16/21 [Rx] Ferrous Sulfate [Ferosul] 325 mg PO BID #100 tablet 02/16/21 [Rx] Past Medical History - Past Health History Medical/Surgical History: Denies Medical/Surgical History HEENT History: Reports: None Cardiovascular History: Reports: Other (See Below) Other Cardiovascular History: palpatations, hx occasional PVC's Respiratory History: Reports: None Gastrointestinal History: Reports: Cholelithiasis Genitourinary History: Reports: None 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: , Other (See Below) Musculoskeletal History: Reports: None Neurological History: Reports: None Psychiatric History: Reports: None Endocrine/Metabolic History: Reports: None Hematologic History: Reports: None Immunologic History: Reports: Other (See Below) Other Immunologic History: "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" "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" Oncologic (Cancer) History: Reports: None Dermatologic History: Reports: None - Past Surgical History Head Surgeries/Procedures: Reports: None HEENT Surgical History: Reports: None Cardiovascular Surgical History: Reports: None Respiratory Surgical History: Reports: None GI Surgical History: Reports: None Female Surgical History: Reports: Breast Biopsy Other Female Surgeries/Procedures: breast bx under local (fibroadenoma) Endocrine Surgical History: Reports: None Neurological Surgical History: Reports: None Musculoskeletal Surgical History: Reports: None Oncologic Surgical History: Reports: None Dermatological Surgical History: Reports: None Social & Family History - Family History Family Medical History: No Pertinent Family History Cardiac: Reports: CAD, Hypertension : Reports: Renal Calculus OBGYN: Reports: Endocrine/Metabolic: Reports: Diabetes, type II - Tobacco Use Tobacco Use Status *Q: Never Tobacco User Second Hand Smoke Exposure: No - Caffeine Use Caffeine Use: Reports: None - Recreational Drug Use Recreational Drug Use: No H&P Review of Systems - Review of Systems: Review Of Systems: See Below General: Reports: Fatigue HEENT: Reports: No Symptoms Pulmonary: Reports: Shortness of Breath Cardiovascular: Reports: Chest Pain, Dyspnea on Exertion Gastrointestinal: Reports: No Symptoms Genitourinary: Reports: No Symptoms Musculoskeletal: Reports: No Symptoms Skin: Reports: No Symptoms Psychiatric: Reports: No Symptoms Neurological: Reports: No Symptoms Hematologic/Lymphatic: Reports: Anemia Immunologic: Reports: No Symptoms Exam - Exam Exam: See Below - Vital Signs Vital Signs: Last Vital Signs Temp 36.5 C 02/22/21 00:00 Pulse 73 02/22/21 00:00 Resp 16 02/22/21 00:00 BP 96/52 L 02/22/21 00:00 Pulse Ox 96 02/22/21 00:00 Weight: 148 lb 11.2 oz - Exam General: Alert, Oriented, Cooperative HEENT: Mucosa Moist & Muddy, Pupils Equal, Pupils Reactive Neck: Supple, Trachea Midline Lungs: Clear to Auscultation Cardiovascular: Normal S1, Normal S2, Bradycardia GI/Abdominal Exam: Normal Bowel Sounds, Soft, Non-Tender, No Distention (Female) Exam: Deferred Back Exam: Normal Inspection, Full Range of Motion Extremities: Normal Inspection, Normal Range of Motion, Non-Tender, Pedal Edema (2+ pitting) Skin: Warm, Intact Neurological: Cranial Nerves Intact, Hyperreflexia (3+ b/l LE) Neuro Extensive - Mental Status: Alert, Oriented x3, Normal Mood/Affect Psychiatric: Alert, Normal Affect, Normal Mood - Patient Data Lab Results Last 24 hrs: Laboratory Results - last 24 hr 02/21/21 02/21/21 02/21/21 Range/Units 01:38 01:38 01:38 WBC 6.29 (4.0-11.0) K/uL RBC 3.13 L (4.30-5.90) M/uL Hgb 9.9 L (12.0-16.0) g/dL Hct 29.7 L (36.0-46.0) % MCV 94.9 (80.0-98.0) fL MCH 31.6 (27.0-32.0) pg MCHC 33.3 (31.0-37.0) g/dL RDW Std Deviation 49.0 (28.0-62.0) fl RDW Coeff of Maximo 14 (11.0-15.0) % Plt Count 304 (150-400) K/uL MPV 9.30 (7.40-12.00) fL Add Manual Diff YES Neutrophils % (Manual) 67 (48.0-80.0) % Lymphocytes % (Manual) 24 (16.0-40.0) % Monocytes % (Manual) 8 (0.0-15.0) % Eosinophils % (Manual) 1 (0.0-7.0) % Nucleated RBC % 0.5 /100WBC Absolute Seg Neuts 4.2 (1.4-5.7) Lymphocytes # (Manual) 1.5 (0.6-2.4) Monocytes # (Manual) 0.5 (0.0-0.8) Eosinophils # (Manual) 0.1 (0.0-0.7) Nucleated RBCs # 0 K/uL INR APTT (18.6-31.3) SEC Sodium 140 (136-145) mmol/L Potassium 4.1 (3.5-5.1) mmol/L Chloride 105 (98-107) mmol/L Carbon Dioxide 23.4 (21.0-32.0) mmol/L BUN 21 H (7.0-18.0) mg/dL Creatinine 0.9 (0.6-1.0) mg/dL Est Cr Clr Drug Dosing 71.48 mL/min Estimated GFR (MDRD) > 60.0 ml/min Glucose 107 H (74-106) mg/dL Lactic Acid (0.4-2.0) mmol/L Calcium 8.3 L (8.5-10.1) mg/dL Magnesium (1.8-2.4) mg/dL Total Bilirubin 0.2 (0.2-1.0) mg/dL AST 23 (15-37) IU/L ALT 39 (14-63) IU/L Alkaline Phosphatase 108 (46-116) U/L Troponin I < 0.050 (0.000-0.056) ng/mL B-Natriuretic Peptide 203 H (<100) PG/ML Total Protein 6.5 (6.4-8.2) g/dL Albumin 2.4 L (3.4-5.0) g/dL Globulin 4.1 H (2.6-4.0) g/dL Albumin/Globulin Ratio 0.6 L (0.9-1.6) Urine Color Urine Appearance Urine pH (5.0-8.0) Ur Specific [place] (1.001-1.035) Urine Protein (NEGATIVE) mg/dL Urine Glucose (UA) (NEGATIVE) mg/dL Urine Ketones (NEGATIVE) mg/dL Urine Occult Blood (NEGATIVE) Urine Nitrite (NEGATIVE) Urine Bilirubin (NEGATIVE) Urine Urobilinogen (<2.0) EU/dL Ur Leukocyte Esterase (NEGATIVE) Urine RBC (0-2/HPF) Urine WBC (0-5/HPF) Ur Epithelial Cells (NONE-FEW) Urine Bacteria (NEGATIVE) Ur Random Creatinine mg/dL U Random Total Protein (<11.9) mg/dL Influenza Type A RNA (NEGATIVE) Influenza Type B RNA (NEGATIVE) SARS-CoV-2 RNA (ALISA) (NEGATIVE) Blood Type Antibody Screen Antibody Identification 02/21/21 02/21/21 02/21/21 Range/Units 01:38 02:05 02:05 WBC (4.0-11.0) K/uL RBC (4.30-5.90) M/uL Hgb (12.0-16.0) g/dL Hct (36.0-46.0) % MCV (80.0-98.0) fL MCH (27.0-32.0) pg MCHC (31.0-37.0) g/dL RDW Std Deviation (28.0-62.0) fl RDW Coeff of Maximo (11.0-15.0) % Plt Count (150-400) K/uL MPV (7.40-12.00) fL Add Manual Diff Neutrophils % (Manual) (48.0-80.0) % Lymphocytes % (Manual) (16.0-40.0) % Monocytes % (Manual) (0.0-15.0) % Eosinophils % (Manual) (0.0-7.0) % Nucleated RBC % /100WBC Absolute Seg Neuts (1.4-5.7) Lymphocytes # (Manual) (0.6-2.4) Monocytes # (Manual) (0.0-0.8) Eosinophils # (Manual) (0.0-0.7) Nucleated RBCs # K/uL INR 1.07 APTT 26.3 (18.6-31.3) SEC Sodium (136-145) mmol/L Potassium (3.5-5.1) mmol/L Chloride (98-107) mmol/L Carbon Dioxide (21.0-32.0) mmol/L BUN (7.0-18.0) mg/dL Creatinine (0.6-1.0) mg/dL Est Cr Clr Drug Dosing mL/min Estimated GFR (MDRD) ml/min Glucose (74-106) mg/dL Lactic Acid 0.7 (0.4-2.0) mmol/L Calcium (8.5-10.1) mg/dL Magnesium (1.8-2.4) mg/dL Total Bilirubin (0.2-1.0) mg/dL AST (15-37) IU/L ALT (14-63) IU/L Alkaline Phosphatase (46-116) U/L Troponin I (0.000-0.056) ng/mL B-Natriuretic Peptide (<100) PG/ML Total Protein (6.4-8.2) g/dL Albumin (3.4-5.0) g/dL Globulin (2.6-4.0) g/dL Albumin/Globulin Ratio (0.9-1.6) Urine Color Urine Appearance Urine pH (5.0-8.0) Ur Specific [place] (1.001-1.035) Urine Protein (NEGATIVE) mg/dL Urine Glucose (UA) (NEGATIVE) mg/dL Urine Ketones (NEGATIVE) mg/dL Urine Occult Blood (NEGATIVE) Urine Nitrite (NEGATIVE) Urine Bilirubin (NEGATIVE) Urine Urobilinogen (<2.0) EU/dL Ur Leukocyte Esterase (NEGATIVE) Urine RBC (0-2/HPF) Urine WBC (0-5/HPF) Ur Epithelial Cells (NONE-FEW) Urine Bacteria (NEGATIVE) Ur Random Creatinine mg/dL U Random Total Protein (<11.9) mg/dL Influenza Type A RNA (NEGATIVE) Influenza Type B RNA (NEGATIVE) SARS-CoV-2 RNA (ALISA) (NEGATIVE) Blood Type O NEGATIVE Antibody Screen POSITIVE Antibody Identification Anti-D 02/21/21 02/21/21 02/21/21 Range/Units 03:55 03:56 03:56 WBC (4.0-11.0) K/uL RBC (4.30-5.90) M/uL Hgb (12.0-16.0) g/dL Hct (36.0-46.0) % MCV (80.0-98.0) fL MCH (27.0-32.0) pg MCHC (31.0-37.0) g/dL RDW Std Deviation (28.0-62.0) fl RDW Coeff of Maximo (11.0-15.0) % Plt Count (150-400) K/uL MPV (7.40-12.00) fL Add Manual Diff Neutrophils % (Manual) (48.0-80.0) % Lymphocytes % (Manual) (16.0-40.0) % Monocytes % (Manual) (0.0-15.0) % Eosinophils % (Manual) (0.0-7.0) % Nucleated RBC % /100WBC Absolute Seg Neuts (1.4-5.7) Lymphocytes # (Manual) (0.6-2.4) Monocytes # (Manual) (0.0-0.8) Eosinophils # (Manual) (0.0-0.7) Nucleated RBCs # K/uL INR APTT (18.6-31.3) SEC Sodium (136-145) mmol/L Potassium (3.5-5.1) mmol/L Chloride (98-107) mmol/L Carbon Dioxide (21.0-32.0) mmol/L BUN (7.0-18.0) mg/dL Creatinine (0.6-1.0) mg/dL Est Cr Clr Drug Dosing mL/min Estimated GFR (MDRD) ml/min Glucose (74-106) mg/dL Lactic Acid (0.4-2.0) mmol/L Calcium (8.5-10.1) mg/dL Magnesium (1.8-2.4) mg/dL Total Bilirubin (0.2-1.0) mg/dL AST (15-37) IU/L ALT (14-63) IU/L Alkaline Phosphatase (46-116) U/L Troponin I (0.000-0.056) ng/mL B-Natriuretic Peptide (<100) PG/ML Total Protein (6.4-8.2) g/dL Albumin (3.4-5.0) g/dL Globulin (2.6-4.0) g/dL Albumin/Globulin Ratio (0.9-1.6) Urine Color YELLOW Urine Appearance SLT CLOUDY Urine pH 6.5 (5.0-8.0) Ur Specific [place] 1.010 (1.001-1.035) Urine Protein NEGATIVE (NEGATIVE) mg/dL Urine Glucose (UA) NEGATIVE (NEGATIVE) mg/dL Urine Ketones NEGATIVE (NEGATIVE) mg/dL Urine Occult Blood LARGE H (NEGATIVE) Urine Nitrite NEGATIVE (NEGATIVE) Urine Bilirubin NEGATIVE (NEGATIVE) Urine Urobilinogen 0.2 (<2.0) EU/dL Ur Leukocyte Esterase SMALL H (NEGATIVE) Urine RBC 15-18 (0-2/HPF) Urine WBC 3-6 (0-5/HPF) Ur Epithelial Cells FEW (NONE-FEW) Urine Bacteria RARE (NEGATIVE) Ur Random Creatinine 29.1 mg/dL U Random Total Protein 21.3 H (<11.9) mg/dL Influenza Type A RNA NEGATIVE (NEGATIVE) Influenza Type B RNA NEGATIVE (NEGATIVE) SARS-CoV-2 RNA (ALISA) NEGATIVE (NEGATIVE) Blood Type Antibody Screen Antibody Identification 02/21/21 02/21/21 02/21/21 Range/Units 07:15 07:15 18:34 WBC (4.0-11.0) K/uL RBC (4.30-5.90) M/uL Hgb (12.0-16.0) g/dL Hct (36.0-46.0) % MCV (80.0-98.0) fL MCH (27.0-32.0) pg MCHC (31.0-37.0) g/dL RDW Std Deviation (28.0-62.0) fl RDW Coeff of Maximo (11.0-15.0) % Plt Count (150-400) K/uL MPV (7.40-12.00) fL Add Manual Diff Neutrophils % (Manual) (48.0-80.0) % Lymphocytes % (Manual) (16.0-40.0) % Monocytes % (Manual) (0.0-15.0) % Eosinophils % (Manual) (0.0-7.0) % Nucleated RBC % /100WBC Absolute Seg Neuts (1.4-5.7) Lymphocytes # (Manual) (0.6-2.4) Monocytes # (Manual) (0.0-0.8) Eosinophils # (Manual) (0.0-0.7) Nucleated RBCs # K/uL INR APTT (18.6-31.3) SEC Sodium (136-145) mmol/L Potassium (3.5-5.1) mmol/L Chloride (98-107) mmol/L Carbon Dioxide (21.0-32.0) mmol/L BUN (7.0-18.0) mg/dL Creatinine (0.6-1.0) mg/dL Est Cr Clr Drug Dosing mL/min Estimated GFR (MDRD) ml/min Glucose (74-106) mg/dL Lactic Acid (0.4-2.0) mmol/L Calcium (8.5-10.1) mg/dL Magnesium 1.9 5.9 H (1.8-2.4) mg/dL Total Bilirubin (0.2-1.0) mg/dL AST (15-37) IU/L ALT (14-63) IU/L Alkaline Phosphatase (46-116) U/L Troponin I < 0.050 (0.000-0.056) ng/mL B-Natriuretic Peptide (<100) PG/ML Total Protein (6.4-8.2) g/dL Albumin (3.4-5.0) g/dL Globulin (2.6-4.0) g/dL Albumin/Globulin Ratio (0.9-1.6) Urine Color Urine Appearance Urine pH (5.0-8.0) Ur Specific [place] (1.001-1.035) Urine Protein (NEGATIVE) mg/dL Urine Glucose (UA) (NEGATIVE) mg/dL Urine Ketones (NEGATIVE) mg/dL Urine Occult Blood (NEGATIVE) Urine Nitrite (NEGATIVE) Urine Bilirubin (NEGATIVE) Urine Urobilinogen (<2.0) EU/dL Ur Leukocyte Esterase (NEGATIVE) Urine RBC (0-2/HPF) Urine WBC (0-5/HPF) Ur Epithelial Cells (NONE-FEW) Urine Bacteria (NEGATIVE) Ur Random Creatinine mg/dL U Random Total Protein (<11.9) mg/dL Influenza Type A RNA (NEGATIVE) Influenza Type B RNA (NEGATIVE) SARS-CoV-2 RNA (ALISA) (NEGATIVE) Blood Type Antibody Screen Antibody Identification Result Diagrams: 02/21/21 01:38 02/21/21 01:38 Sepsis Event Note - Evaluation Sepsis Screening Result: No Definite Risk - Focused Exam Vital Signs: Vital Signs Temp Pulse Resp BP Pulse Ox 02/22/21 00:00 36.5 C 73 16 96/52 L 96 02/21/21 20:00 36.6 C 78 15 115/61 99 02/21/21 16:00 36.1 C 78 18 101/59 L 100 02/21/21 13:30 36.3 C 65 15 133/67 97 Consult PN Assessment/Plan Procedures: Procedures ALPHA-FETOPROTEIN SERUM (09/21/20) ASSAY OF FREE THYROXINE (08/28/19) ASSAY OF GONADOTROPIN (FSH) (06/25/19) ASSAY OF GONADOTROPIN (LH) (06/25/19) ASSAY OF PROGESTERONE (06/15/20) ASSAY OF PROLACTIN (06/25/19) ASSAY OF TOTAL ESTRADIOL (06/25/19) ASSAY THYROID STIM HORMONE (08/28/19) BLOOD TYPING SEROLOGIC ABO (11/25/20) BLOOD TYPING SEROLOGIC RH(D) (11/25/20) BREAST TOMOSYNTHESIS BI (04/30/19) CARE OF MISCARRIAGE (08/28/19) CATHETER FOR HYSTEROGRAPHY (06/30/19) CHEMILUMINESCENT ASSAY (06/25/19) CHORIONIC GONADOTROPIN TEST (06/17/20) CHYLMD TRACH DNA AMP PROBE (07/13/20) COMPATIBILITY TEST ANTIGLOB (08/28/19) COMPATIBILITY TEST INCUBATE (08/28/19) COMPATIBILITY TEST SPIN (08/28/19) COMPLETE CBC AUTOMATED (01/10/21) COMPREHEN METABOLIC PANEL (08/28/19) CYTOPATH C/V AUTO FLUID REDO (03/19/19) DX MAMMO INCL CAD BI (04/30/19) GLUCOSE TEST (11/25/20) HEPATITIS B SURFACE AG IA (07/13/20) HPV HIGH-RISK TYPES (03/19/19) HYDRATE IV INFUSION ADD-ON (07/19/20) HYDRATION IV INFUSION INIT (07/19/20) MICROBE SUSCEPTIBLE GLENROY (07/13/20) N.GONORRHOEAE DNA AMP PROB (07/13/20) RBC ANTIBODY SCREEN (11/25/20) RH IG FULL-DOSE IM (11/25/20) ROUTINE VENIPUNCTURE (08/28/19) RUBELLA ANTIBODY (07/13/20) SARS-COV-2 COVID-19 AMP PRB (02/13/21) STREP B DNA AMP PROBE (01/26/21) SYPHILIS TEST NON-TREP QUAL (11/25/20) THER/PROPH/DIAG INJ IV PUSH (07/19/20) TISSUE CULTURE SKIN/BIOPSY (08/28/19) TISSUE EXAM BY PATHOLOGIST (08/28/19) ULTRASOUND BREAST COMPLETE (04/30/19) URINE BACTERIA CULTURE (07/13/20) URINE CULTURE/COLONY COUNT (08/23/20) URINE TEST (06/30/19) US GUIDE INTRAOP (08/28/19) VITAMIN D 25 HYDROXY (10/19/19) X-RAY EXAM CHEST 2 VIEWS (08/28/19) X-RAY FEMALE GENITAL TRACT (06/30/19) Problem List Initiated/Reviewed/Updated: Yes My Orders Last 24 Hours: My Active Orders 02/21/21 12:37 Bedrest [RC] ASDIRECTED Communication Order [RC] PRN Communication Order [RC] PRN Equipment to Bedside [RC] PRN Height and Weight [RC] DAILY Intake and Output [RC] QSHIFT Notify Provider Status Change [RC] ASDIRECTED Notify Provider [RC] PRN Vital Signs [RC] ASDIRECTED Calcium Gluconate 1 gm IV ASDIRECTED PRN Sodium Chloride 0.9% [Normal Saline] 10 ml IV ASDIRECTED PRN Peripheral IV Insertion Adult [OM.PC] Routine 02/21/21 12:43 Docusate Sodium [Colace] 100 mg PO Q12H PRN Perineal Care [OM.PC] Routine 02/21/21 12:44 Benzocaine/Menthol [Dermoplast Pain Relief 20%-0.5% [place]] 1 gm TOP ASDIRECTED PRN 02/21/21 12:45 Insert Cardona Catheter [Insert Urinary Catheter] [OM.PC] Q24H Urinary Catheter Assessment [RC] ASDIRECTED Deep Tendon Reflexes [WOMSER] Q1H 02/21/21 13:00 Enoxaparin [Lovenox] 40 mg SUBCUT Q24H 02/21/21 13:45 Deep Tendon Reflexes [WOMSER] Q1 02/21/21 14:45 Deep Tendon Reflexes [WOMSER] Q1 02/21/21 15:45 Deep Tendon Reflexes [WOMSER] Q1 02/21/21 16:45 Deep Tendon Reflexes [WOMSER] Q1 02/21/21 17:45 Deep Tendon Reflexes [WOMSER] Q1 02/21/21 18:45 Deep Tendon Reflexes [WOMSER] Q1 02/21/21 19:45 Deep Tendon Reflexes [WOMSER] Q1 02/21/21 20:45 Deep Tendon Reflexes [WOMSER] Q1 02/21/21 21:45 Deep Tendon Reflexes [WOMSER] Q1 02/21/21 22:00 Magnesium Sulfate/Water [Magnesium Sulfate in Water 20 GM/500 ML] 20 gm in 500 ml IV ASDIRECTED 02/21/21 22:45 Deep Tendon Reflexes [WOMSER] Q1 02/21/21 23:45 Deep Tendon Reflexes [WOMSER] Q1 02/22/21 00:00 MAGNESIUM [CHEM] Q6H 02/22/21 00:45 MAGNESIUM [CHEM] Q6H Deep Tendon Reflexes [WOMSER] Q1 02/22/21 01:45 Deep Tendon Reflexes [WOMSER] Q1 02/22/21 02:45 Deep Tendon Reflexes [WOMSER] Q1 02/22/21 03:45 Deep Tendon Reflexes [WOMSER] Q1 02/22/21 04:45 Deep Tendon Reflexes [WOMSER] Q1 02/22/21 05:00 B-TYPE NATRIURETIC PEPTIDE,BNP [CHEM] Routine CBC W/O DIFF,HEMOGRAM [HEME] Stat COMPREHENSIVE METABOLIC PN,CMP [CHEM] Routine URIC ACID [CHEM] Stat 02/22/21 05:45 Deep Tendon Reflexes [WOMSER] Q1H 02/22/21 06:00 MAGNESIUM [CHEM] Q6H 02/22/21 06:45 MAGNESIUM [CHEM] Q6H Deep Tendon Reflexes [WOMSER] Q1H 02/22/21 07:45 Deep Tendon Reflexes [WOMSER] Q1H 02/22/21 08:45 Deep Tendon Reflexes [WOMSER] Q1H 02/22/21 09:45 Deep Tendon Reflexes [WOMSER] Q1H 02/22/21 10:45 Deep Tendon Reflexes [WOMSER] Q1H 02/22/21 11:45 Deep Tendon Reflexes [WOMSER] Q1H 02/22/21 12:00 MAGNESIUM [CHEM] Q6H 02/22/21 12:45 MAGNESIUM [CHEM] Q6H 02/22/21 18:00 MAGNESIUM [CHEM] Q6H Plan: 36yo PPD5 s/p VAVD, presenting with dyspnea, edema and elevated BP, symptoms consistent with preeclampsia with severe features. - continue to monitor BP closely, mostly mild range s/p hydralazine 5mg IV, protein /cr ratio elevated at 0.7 - continue tele monitoring with bradycardia - start 24hr of magnesium sulfate for seizure prophylaxis, Mg level q6hr - monitor I&Os. UO improving s/p lasix - cardiac echo completed, pending final report. s/p neg CTA chest. - repeat BNP, CBC, CMP, uric acid in the AM Appreciate consultation regarding the care of this patient, will continue to fo llow.
[2021-02-22] MEDS: Magnesium Sulfate/Water 20 GM/500 ML BAG IV SCH (03:48)
[2021-02-22] MEDS: Acetaminophen 500 MG Tab PO PRN (04:10)
[2021-02-22 06:55] LABS: BLOOD UREA NITROGEN,BUN 19 mg/dL (7.0-18.0); CARBON DIOXIDE,CO2 26.4 mmol/L (21.0-32.0); CHLORIDE,CL 103 mmol/L (98-107); GLUCOSE RANDOM 112 mg/dL (74-106); POTASSIUM,K 3.5 mmol/L (3.5-5.1); SODIUM,NA 138 mmol/L (136-145)
[2021-02-22] MEDS ORDERED: Acetaminophen 500 MG Tab PO PRN (08:24)
--- NOTE | 2021-02-22 08:41 | PCM.CONSN ---
- General Info Date of Service: 02/22/21 Subjective Update: She had some blurry vision and facial numbness last night, decreased Mg to 1mg/hr. Symptoms improving. Has a frontal headache that improves with tylenol. Julio in place with good output. Swelling decreasing. Perineum still sore but was able to have normal BMs. Functional Status: Reports: Pain Controlled, Tolerating Diet - Review of Systems General: Reports: Fatigue HEENT: Reports: Headaches Pulmonary: Reports: No Symptoms Cardiovascular: Reports: No Symptoms Gastrointestinal: Reports: No Symptoms Genitourinary: Reports: No Symptoms Musculoskeletal: Reports: No Symptoms Skin: Reports: No Symptoms Neurological: Reports: No Symptoms Psychiatric: Reports: No Symptoms - Patient Data Vitals - Most Recent: Last Vital Signs Temp 36.6 C 02/22/21 04:00 Pulse 85 02/22/21 04:00 Resp 15 02/22/21 04:00 BP 110/58 L 02/22/21 04:00 Pulse Ox 97 02/22/21 04:00 Weight - Most Recent: 148 lb 11.2 oz I&O - Last 24 Hours: Intake & Output 02/21/21 02/22/21 02/22/21 22:59 06:59 14:59 Intake Total 220 Output Total 700 1100 Balance -700 -880 Lab Results Last 24 Hours: Laboratory Results - last 24 hr 02/21/21 02/21/21 02/21/21 Range/Units 03:56 07:15 18:34 WBC (4.0-11.0) K/uL RBC (4.30-5.90) M/uL Hgb (12.0-16.0) g/dL Hct (36.0-46.0) % MCV (80.0-98.0) fL MCH (27.0-32.0) pg MCHC (31.0-37.0) g/dL RDW Std Deviation (28.0-62.0) fl RDW Coeff of Maximo (11.0-15.0) % Plt Count (150-400) K/uL MPV (7.40-12.00) fL Nucleated RBC % /100WBC Nucleated RBCs # K/uL Sodium (136-145) mmol/L Potassium (3.5-5.1) mmol/L Chloride (98-107) mmol/L Carbon Dioxide (21.0-32.0) mmol/L BUN (7.0-18.0) mg/dL Creatinine (0.6-1.0) mg/dL Est Cr Clr Drug Dosing mL/min Estimated GFR (MDRD) ml/min Glucose (74-106) mg/dL Uric Acid (2.6-7.2) mg/dL Calcium (8.5-10.1) mg/dL Magnesium 1.9 5.9 H (1.8-2.4) mg/dL Total Bilirubin (0.2-1.0) mg/dL AST (15-37) IU/L ALT (14-63) IU/L Alkaline Phosphatase (46-116) U/L Total Protein (6.4-8.2) g/dL Albumin (3.4-5.0) g/dL Globulin (2.6-4.0) g/dL Albumin/Globulin Ratio (0.9-1.6) Ur Random Creatinine 29.1 mg/dL U Random Total Protein 21.3 H (<11.9) mg/dL 02/22/21 02/22/21 02/22/21 Range/Units 00:25 06:05 06:05 WBC 6.59 (4.0-11.0) K/uL RBC 3.67 L (4.30-5.90) M/uL Hgb 11.6 L (12.0-16.0) g/dL Hct 34.2 L (36.0-46.0) % MCV 93.2 (80.0-98.0) fL MCH 31.6 (27.0-32.0) pg MCHC 33.9 (31.0-37.0) g/dL RDW Std Deviation 47.8 (28.0-62.0) fl RDW Coeff of Maximo 14 (11.0-15.0) % Plt Count 373 (150-400) K/uL MPV 8.90 (7.40-12.00) fL Nucleated RBC % 0.0 /100WBC Nucleated RBCs # 0 K/uL Sodium 138 (136-145) mmol/L Potassium 3.5 (3.5-5.1) mmol/L Chloride 103 (98-107) mmol/L Carbon Dioxide 26.4 (21.0-32.0) mmol/L BUN 19 H (7.0-18.0) mg/dL Creatinine 0.8 (0.6-1.0) mg/dL Est Cr Clr Drug Dosing 80.42 mL/min Estimated GFR (MDRD) > 60.0 ml/min Glucose 112 H (74-106) mg/dL Uric Acid (2.6-7.2) mg/dL Calcium 7.6 L (8.5-10.1) mg/dL Magnesium 6.0 H (1.8-2.4) mg/dL Total Bilirubin 0.2 (0.2-1.0) mg/dL AST 23 (15-37) IU/L ALT 46 (14-63) IU/L Alkaline Phosphatase 104 (46-116) U/L Total Protein 6.7 (6.4-8.2) g/dL Albumin 2.5 L (3.4-5.0) g/dL Globulin 4.2 H (2.6-4.0) g/dL Albumin/Globulin Ratio 0.6 L (0.9-1.6) Ur Random Creatinine mg/dL U Random Total Protein (<11.9) mg/dL 02/22/21 02/22/21 Range/Units 06:05 06:05 WBC (4.0-11.0) K/uL RBC (4.30-5.90) M/uL Hgb (12.0-16.0) g/dL Hct (36.0-46.0) % MCV (80.0-98.0) fL MCH (27.0-32.0) pg MCHC (31.0-37.0) g/dL RDW Std Deviation (28.0-62.0) fl RDW Coeff of Maximo (11.0-15.0) % Plt Count (150-400) K/uL MPV (7.40-12.00) fL Nucleated RBC % /100WBC Nucleated RBCs # K/uL Sodium (136-145) mmol/L Potassium (3.5-5.1) mmol/L Chloride (98-107) mmol/L Carbon Dioxide (21.0-32.0) mmol/L BUN (7.0-18.0) mg/dL Creatinine (0.6-1.0) mg/dL Est Cr Clr Drug Dosing mL/min Estimated GFR (MDRD) ml/min Glucose (74-106) mg/dL Uric Acid 5.5 (2.6-7.2) mg/dL Calcium (8.5-10.1) mg/dL Magnesium 5.5 H (1.8-2.4) mg/dL Total Bilirubin (0.2-1.0) mg/dL AST (15-37) IU/L ALT (14-63) IU/L Alkaline Phosphatase (46-116) U/L Total Protein (6.4-8.2) g/dL Albumin (3.4-5.0) g/dL Globulin (2.6-4.0) g/dL Albumin/Globulin Ratio (0.9-1.6) Ur Random Creatinine mg/dL U Random Total Protein (<11.9) mg/dL Med Orders - Current: Current Medications Acetaminophen (Acetaminophen 500 Mg Tab) 500 mg PO Q4H PRN PRN Reason: Pain Last Admin: 02/22/21 04:10 Dose: 500 mg Documented by: Acetaminophen (Acetaminophen 500 Mg Tab) 1,000 mg PO Q6H PRN PRN Reason: Pain Benzocaine/Menthol (Benzocaine/Menthol 20%-0.5% [place] 78 Gm Cannister) 1 gm TOP ASDIRECTED PRN PRN Reason: Pain (moderate 4-6) Calcium Gluconate (Calcium Gluconate 10% 1 Gm/10 Ml Sdv) 1 gm IV ASDIRECTED PRN PRN Reason: respiratory distress Docusate Sodium (Docusate Sodium 100 Mg Cap) 100 mg PO Q12H PRN PRN Reason: Constipation Last Admin: 02/21/21 21:23 Dose: 100 mg Documented by: Enoxaparin Sodium (Enoxaparin 40 Mg/0.4 Ml Syringe) 40 mg SUBCUT Q24H LEONOR Last Admin: 02/21/21 13:44 Dose: 40 mg Documented by: Magnesium Sulfate (Magnesium Sulfate In Water 20 Gm/500 Ml) 20 gm in 500 mls @ 25 mls/hr IV ASDIRECTED LEONOR; Protocol Last Admin: 02/22/21 03:48 Dose: 1 gm/hr, 25 mls/hr Documented by: Sodium Chloride (Sodium Chloride 0.9% 10 Ml Syringe) 10 ml FLUSH ASDIRECTED PRN PRN Reason: Keep Vein Open Last Admin: 02/21/21 02:18 Dose: 10 ml Documented by: Sodium Chloride (Sodium Chloride 0.9% 2.5 Ml Syringe) 2.5 ml FLUSH ASDIRECTED PRN PRN Reason: Keep Vein Open Last Admin: 02/21/21 02:17 Dose: 2.5 ml Documented by: Sodium Chloride (Sodium Chloride 0.9% 20 Ml Sdv) 10 ml IV ASDIRECTED PRN PRN Reason: IV Use Discontinued Medications Furosemide (Furosemide 20 Mg Tab) 20 mg PO ONETIME ONE Stop: 02/21/21 04:31 Last Admin: 02/21/21 06:21 Dose: 20 mg Documented by: Furosemide (Furosemide 40 Mg/4 Ml Vial) 40 mg IVPUSH NOW ONE Stop: 02/21/21 08:05 Last Admin: 02/21/21 08:24 Dose: 40 mg Documented by: Hydralazine HCl (Hydralazine 20 Mg/Ml Sdv) 5 mg IVPUSH ONETIME ONE Stop: 02/21/21 07:38 Last Admin: 02/21/21 08:01 Dose: 5 mg Documented by: Magnesium Sulfate 4 gm/ Premix 100 mls @ 300 mls/hr IV BOLUS ONE Stop: 02/21/21 12:56 Last Admin: 02/21/21 13:58 Dose: 300 mls/hr Documented by: Magnesium Sulfate (Magnesium Sulfate In Water 20 Gm/500 Ml) 20 gm in 500 mls @ 50 mls/hr IV ASDIRECTED LEONOR; Protocol Last Admin: 02/21/21 14:35 Dose: 2 gm/hr, 50 mls/hr Documented by: Iopamidol (Iopamidol 755 Mg/Ml 500 Ml Multipack Bottle) 75 ml IVPUSH ONETIME STA Stop: 02/21/21 03:05 Last Admin: 02/21/21 03:05 Dose: 75 ml Documented by: - Exam Urinary Catheter Total Time: 0Days 10Hours General: Alert, Oriented, Cooperative, No Acute Distress HEENT: Pupils Equal, Pupils Reactive, EOMI Neck: Supple, Trachea Midline Lungs: Normal Respiratory Effort GI/Abdominal Exam: Soft, Non-Tender, No Distention (Female) Exam: Normal External Exam (laceration healing well) Back Exam: Normal Inspection, Full Range of Motion Extremities: Normal Inspection, Normal Range of Motion, Non-Tender, Pedal Edema (1+ nonpitting) Skin: Warm, Dry, Intact Wound/Incisions: Healing Well Neurological: No New Focal Deficit Psy/Mental Status: Alert, Normal Affect, Normal Mood Sepsis Event Note - Evaluation Sepsis Screening Result: No Definite Risk - Focused Exam Vital Signs: Vital Signs Temp Pulse Resp BP Pulse Ox 02/22/21 04:00 36.6 C 85 15 110/58 L 97 02/22/21 00:00 36.5 C 73 16 96/52 L 96 Consult PN Assessment/Plan Procedures: Procedures ALPHA-FETOPROTEIN SERUM (09/21/20) ASSAY OF FREE THYROXINE (08/28/19) ASSAY OF GONADOTROPIN (FSH) (06/25/19) ASSAY OF GONADOTROPIN (LH) (06/25/19) ASSAY OF PROGESTERONE (06/15/20) ASSAY OF PROLACTIN (06/25/19) ASSAY OF TOTAL ESTRADIOL (06/25/19) ASSAY THYROID STIM HORMONE (08/28/19) BLOOD TYPING SEROLOGIC ABO (11/25/20) BLOOD TYPING SEROLOGIC RH(D) (11/25/20) BREAST TOMOSYNTHESIS BI (04/30/19) CARE OF MISCARRIAGE (08/28/19) CATHETER FOR HYSTEROGRAPHY (06/30/19) CHEMILUMINESCENT ASSAY (06/25/19) CHORIONIC GONADOTROPIN TEST (06/17/20) CHYLMD TRACH DNA AMP PROBE (07/13/20) COMPATIBILITY TEST ANTIGLOB (08/28/19) COMPATIBILITY TEST INCUBATE (08/28/19) COMPATIBILITY TEST SPIN (08/28/19) COMPLETE CBC AUTOMATED (01/10/21) COMPREHEN METABOLIC PANEL (08/28/19) CYTOPATH C/V AUTO FLUID REDO (03/19/19) DX MAMMO INCL CAD BI (04/30/19) GLUCOSE TEST (11/25/20) HEPATITIS B SURFACE AG IA (07/13/20) HPV HIGH-RISK TYPES (03/19/19) HYDRATE IV INFUSION ADD-ON (07/19/20) HYDRATION IV INFUSION INIT (07/19/20) MICROBE SUSCEPTIBLE GLENROY (07/13/20) N.GONORRHOEAE DNA AMP PROB (07/13/20) RBC ANTIBODY SCREEN (11/25/20) RH IG FULL-DOSE IM (11/25/20) ROUTINE VENIPUNCTURE (08/28/19) RUBELLA ANTIBODY (07/13/20) SARS-COV-2 COVID-19 AMP PRB (02/13/21) STREP B DNA AMP PROBE (01/26/21) SYPHILIS TEST NON-TREP QUAL (11/25/20) THER/PROPH/DIAG INJ IV PUSH (07/19/20) TISSUE CULTURE SKIN/BIOPSY (08/28/19) TISSUE EXAM BY PATHOLOGIST (08/28/19) ULTRASOUND BREAST COMPLETE (04/30/19) URINE BACTERIA CULTURE (07/13/20) URINE CULTURE/COLONY COUNT (08/23/20) URINE TEST (06/30/19) US GUIDE INTRAOP (08/28/19) VITAMIN D 25 HYDROXY (10/19/19) X-RAY EXAM CHEST 2 VIEWS (08/28/19) X-RAY FEMALE GENITAL TRACT (06/30/19) Problem List Initiated/Reviewed/Updated: Yes My Orders Last 24 Hours: My Active Orders 02/21/21 12:37 Bedrest [RC] ASDIRECTED Communication Order [RC] PRN Communication Order [RC] PRN Equipment to Bedside [RC] PRN Height and Weight [RC] DAILY Intake and Output [RC] QSHIFT Notify Provider Status Change [RC] ASDIRECTED Notify Provider [RC] PRN Vital Signs [RC] ASDIRECTED Calcium Gluconate 1 gm IV ASDIRECTED PRN Sodium Chloride 0.9% [Normal Saline] 10 ml IV ASDIRECTED PRN Peripheral IV Insertion Adult [OM.PC] Routine 02/21/21 12:43 Docusate Sodium [Colace] 100 mg PO Q12H PRN Perineal Care [OM.PC] Routine 02/21/21 12:44 Benzocaine/Menthol [Dermoplast Pain Relief 20%-0.5% [place]] 1 gm TOP ASDIRECTED PRN 02/21/21 12:45 Insert Julio Catheter [Insert Urinary Catheter] [OM.PC] Q24H Urinary Catheter Assessment [RC] ASDIRECTED Deep Tendon Reflexes [WOMSER] Q1H 02/21/21 13:00 Enoxaparin [Lovenox] 40 mg SUBCUT Q24H 02/21/21 13:45 Deep Tendon Reflexes [WOMSER] Q1H 02/21/21 14:45 Deep Tendon Reflexes [WOMSER] Q1H 02/21/21 15:45 Deep Tendon Reflexes [WOMSER] Q1H 02/21/21 16:45 Deep Tendon Reflexes [WOMSER] [facility] 02/21/21 17:45 Deep Tendon Reflexes [WOMSER] [facility] 02/21/21 18:45 Deep Tendon Reflexes [WOMSER] [facility] 02/21/21 19:45 Deep Tendon Reflexes [WOMSER] [facility] 02/21/21 20:45 Deep Tendon Reflexes [WOMSER] [facility] 02/21/21 21:45 Deep Tendon Reflexes [WOMSER] [facility] 02/21/21 22:00 Magnesium Sulfate/Water [Magnesium Sulfate in Water 20 GM/500 ML] 20 gm in 500 ml IV ASDIRECTED 02/21/21 22:45 Deep Tendon Reflexes [WOMSER] [facility] 02/21/21 23:45 Deep Tendon Reflexes [WOMSER] [facility] 02/22/21 00:45 Deep Tendon Reflexes [WOMSER] [facility] 02/22/21 01:45 Deep Tendon Reflexes [WOMSER] [facility] 02/22/21 02:45 Deep Tendon Reflexes [WOMSER] [facility] 02/22/21 03:45 Deep Tendon Reflexes [WOMSER] [facility] 02/22/21 04:45 Deep Tendon Reflexes [WOMSER] [facility] 02/22/21 05:45 Deep Tendon Reflexes [WOMSER] [facility] 02/22/21 06:05 B-TYPE NATRIURETIC PEPTIDE,BNP [CHEM] Routine 02/22/21 06:45 Deep Tendon Reflexes [WOMSER] [facility] 02/22/21 07:45 Deep Tendon Reflexes [WOMSER] [facility] 02/22/21 08:24 Acetaminophen [Tylenol Extra Strength] 1,000 mg PO Q6H PRN 02/22/21 08:45 Deep Tendon Reflexes [WOMSER] [facility] 02/22/21 09:45 Deep Tendon Reflexes [WOMSER] [facility] 02/22/21 10:45 Deep Tendon Reflexes [WOMSER] [facility] 02/22/21 11:45 Deep Tendon Reflexes [WOMSER] [facility] 02/22/21 12:00 MAGNESIUM [CHEM] Q6H 02/22/21 18:00 MAGNESIUM [CHEM] Q6H Plan: - BP and HR wnl since starting magnesium, will continue for 24hours - julio in place with good UO - SOB and swelling improving - Mg at 1g/hr, decreased due to signs of toxicity, level stable Will continue to monitor closely. Possible discharge home later today. Reviewed signs and symptoms of preeclampsia, advised daily BP checks.
[2021-02-22] MEDS: Docusate Sodium 100 MG Cap PO PRN (09:03)
[2021-02-22] MEDS ORDERED: Witch Hazel Medicated Pads 40/Jar TOP PRN (10:49)
[2021-02-22] MEDS ORDERED: oxyCODONE 5 MG Tab PO PRN (11:21)
[2021-02-22] MEDS: oxyCODONE 5 MG Tab PO PRN ×2 (12:42→18:24)
[2021-02-22] MEDS: Enoxaparin 40 MG/0.4 ML Syringe SUBCUT SCH (13:55)
--- NOTE | 2021-02-22 15:30 | ECHO ---
EXAM DATE: 02/21/21 PATIENT'S AGE: 36 The ECHO report has been scanned into [employer] and can be seen in this patient's EMR (Electronic Medical Record) under the REPORTS section. The report has also been scanned into PACS. ADRIAN
== END 2021-02-22 19:51 | disposition home or self-care (01) ==
LOC: MW.ED 01:22 → MW.MS 03:44 → MW.OB 12:07
PROVIDERS: ADMIT Obstetrics & Gynecology; ATTEND Obstetrics & Gynecology
DX: O90.89 Other complications of the puerperium, not elsewhere classified (principal); N89.8 Other specified noninflammatory disorders of vagina; Z98.890 Other specified postprocedural states; R06.00 Dyspnea, unspecified; Z20.822 Contact with and (suspected) exposure to COVID-19
CPT/HCPCS: 0240U; 36415; 51702; 71045; 71275; 80053; 81001; 82570; 83605; 83735; 83880; 84156; 84484; 84550; 85025; 85027; 85610; 85730; 86850; 86870; 86900; 86901; 87086; 93005; 93306; 96365; 96366; 96372; 96375; 99285; A9270; G0378; J0360; J1650; J1940; J3475; Q9967